=== PATIENT | female | born 1950 | race Caucasian/White ===

== ENCOUNTER 2022-03-24 09:45 | Outpatient (RCR) | payer MEDICARE, BC, SELFPAY | END 2022-11-11 23:59 | disposition home or self-care (01) | PROVIDERS: PCP Family Medicine; Visit Provider Physician Assistant Surgical | DX: Z98.890 Other specified postprocedural states (principal); Z51.89 Encounter for other specified aftercare | CPT/HCPCS: 97110; 97112; 97140; 97161 ==

== ENCOUNTER 2023-05-09 08:40 | Day surgery (SDC) | payer MEDICARE, BC, SELFPAY ==
[2023-05-09] VITALS (7 sets, daily range): BP systolic 105–149; BP diastolic 47–74; PULSE 73–97; RESP 16; TEMP 36.4–36.7; O2SAT 94–98; BMI 28.1
--- OUTSIDE RECORDS SUMMARY | 2023-05-09 08:44 | XMS_ITS | Encounter Summary ---
Author Name Unknown Organization [facility] Address [address] [place] [address] Care Team Providers Care Airplane Cabin Attendant Name Role Phone Votel, Ruben Hewitt MD Primary Care Provider + Reason for Visit * Procedure/Equipment (Routine) - Incomplete Specialty Diagnoses / Procedures Referred By Contac t Referred To Contact Diagnoses Pain in both hands Procedures XR Hand Lt 3+ Views Dameon Cardona MD [address] [place] [address] [place] [id number] Referral ID Status Reason Start Date Expiration Date V isits Requested Visits Authorized [id number] Incomplete 03/10/2023 06/08/2024 1 1 Encounter Details Date Type Department Care Team Description 03/10/2023 10:45 AM DUST BRUSH ASSEMBLER Ancillary Procedure [facility] [address] [place] [address] [place] [address] [place] [address] [place] [id number] Pain in both hands Social History Tobacco Use Types Packs/Day Years Used Date Smoking Tobacco: Never Smokeless Tobacco: Never Sex and Gender Information Value Date Recorded Sex Assigned at Not on file Gender Identity Not on file Sexual Orientation Not on file documented as of this encounter Plan of Treatment Not on file documented as of this encounter Procedures Procedure Name Priority Date/Time Associated Diagnosis Comments XR HAND LT 3+ VIEWS Routine 03/10/2023 1 0:47 AM DUST BRUSH ASSEMBLER Pain in both hands XR HAND RT 3+ VIEWS Routine 03/10/2023 1 0:47 AM DUST BRUSH ASSEMBLER Pain in both hands documented in this encounter Results * XR Hand Lt 3+ Views (03/10/2023 10:47 AM DUST BRUSH ASSEMBLER) Anatomical Region Laterality Modality Upper Extremity, Hand Digital Ra diography Narrative 03/22/2023 1:05 PM DUST BRUSH ASSEMBLER X-ray of the right hand, including AP, lateral, and oblique projections, shows advanced degenerative change in multiple joints, but particularly in those mentioned above, that is the right long and ring finger at PIP joints, and the right index MP joint. ??In addition, evidence of a previously performed CMC joint arthroplasty is noted. X-ray of the left hand, including AP, lateral, and oblique projections, shows advanced arthritic change in multiple joints, but most notably of the small finger PIP joint, the ring finger PIP joint, and the index MP joint. ??In addition, there is evidence of her previous thumb CMC joint arthroplasty. Dameon Cardona MD RAD GD * XR Hand Rt 3+ Views (03/10/2023 10:47 AM DUST BRUSH ASSEMBLER) Anatomical Region Laterality Modality Upper Extremity, Hand Digital Ra diography Narrative 03/22/2023 1:05 PM DUST BRUSH ASSEMBLER X-ray of the right hand, including AP, lateral, and oblique projections, shows advanced degenerative change in multiple joints, but particularly in those mentioned above, that is the right long and ring finger at PIP joints, and the right index MP joint. ??In addition, evidence of a previously performed CMC joint arthroplasty is noted. X-ray of the left hand, including AP, lateral, and oblique projections, shows advanced arthritic change in multiple joints, but most notably of the small finger PIP joint, the ring finger PIP joint, and the index MP joint. ??In addition, there is evidence of her previous thumb CMC joint arthroplasty. Dameon Cardona MD RAD GD documented in this encounter Visit Diagnoses Diagnosis Pain in both hands documented in this encounter Care Teams Airplane Cabin Attendant Relationship Specialty Start Date End Date Votel, Ruben Hewitt MD [address] [place] [address] PCP - General Family Practice 01/08/16 documented as of this encounter
--- OUTSIDE RECORDS SUMMARY | 2023-05-09 08:44 | XMS_ITS | Clinical Summary ---
Author Name Unknown Organization [facility] Address [address] [place] [address] Care Team Providers Care Posting Clerk Name Role Phone Votel, Ruben Hewitt MD Primary Care Provider + Source Comments You are receiving this document as you are listed as the primary care provider,follow-up provider, or the patient has been referred to you for consultation.This is in compliance with the Medicare and[facility] Clinic[facility] EHR Incentive Program,which states Providers who transition their patient to another setting of careor provider of care or refers their patient to another provider of care shouldprovide summary care record for each transition of care or referral. [employer] Allergies Active Allergy Reactions Criticality Noted Date Comments Epinephrine 01/13/2016 Latex Breathing Difficulty High 01/13/2016 Meperidine Other, see comments 01/13/2016 Mild agitated Morphine Nausea And Vomiting 01/13/2016 Medications Medication Sig Dispensed Refills Start Date End Date Status alendronate (FOSAMAX) 70 MG tablet Take 70 mg by mouth once every week. 0 Active Meloxicam (MOBIC) 15 MG tablet Take 15 mg by mouth daily. 0 Active Multiple Vitamin (MULTIVITAMINS OR) Take 1 Tab by mouth daily. 0 Active Ascorbic Acid (VITAMIN C) 100 MG tablet Take 100 mg by mouth daily. 0 Active cholecalciferol (VITAMIN D3) 1000 UNITS tablet Take 1,000 Units by mouth daily. 0 Active aspirin 81 MG tablet Take 81 mg by mouth daily. 0 Active Simethicone 125 MG Take by mouth daily. 0 Active omeprazole (PRILOSEC-OTC) 20 MG tablet Take 20 mg by mouth daily. 0 Active lisinopril (ZESTRIL) 40 MG tablet Take 40 mg by mouth daily. 0 Active hydrochlorothiazide (ORETIC) 25 MG tablet Take 25 mg by mouth daily. 0 Active fluticasone (FLONASE) 50 MCG/ACT nasal solution Place [address] [place] into both nostrils daily. 0 Active diphenoxylate-atropin e (LOMOTIL) 2.5-0.025 MG tablet Take 1 Tab by mouth 4 times daily as needed for Diarrhea. 0 Active amLODIPine (NORVASC) 10 MG tablet Take 10 mg by mouth daily. 0 Active cyclobenzaprine (FLEXERIL) 5 MG tablet Take 5 mg by mouth three times a day as needed for Muscle Spasms. 0 Active traZODone (DESYREL) 50 MG tablet Take 100 mg by mouth daily at bedtime. 0 Active amoxicillin (AMOXIL) 500 MG capsule Take 500 mg by mouth. 1 capsule 4 hours before dental work 0 Active atorvastatin (LIPITOR) 20 MG tablet Take 20 mg by mouth daily. 0 Active lidocaine-prilocaine (EMLA) 2.5-2.5 % cream Apply to affected areas up to 4 times daily as needed. Apply with a glove. 30 g 3 02/20/2016 Active diclofenac (VOLTAREN) 1 % gel Apply to affected areas up to 4 times daily as needed. 100 g 3 02/20/2016 Active Active Problems Problem Noted Date Diagnosed Date Primary osteoarthritis, right hand 03/10/2023 Osteoarthritis of proximal i nterphalangeal (PIP) joint of right middle finger 03/10/2023 Osteoarthritis of proximal i nterphalangeal (PIP) joint of right ring finger 03/10/2023 Osteoarthritis of metacarpop halangeal (MCP) joint of right index finger 03/10/2023 Osteoarthritis of proximal i nterphalangeal (PIP) joint of left ring finger 03/10/2023 Osteoarthritis of metacarpop halangeal (MCP) joint of left index finger 03/10/2023 Biceps tendinitis of left upper extremity 2015 Primary osteoarthritis involving multiple joints 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 current use of non -steroidal anti-inflammatories (NSAID) 02/20/2016 Essential hypertension 02/20/2016 Encounters Date Type Department Care Team Description 03/10/2023 11:15 AM COFFEE GROWER Office Visit [facility] [address] [place] [address] Dameon Cardona MD Pain in both hands (Primary Dx); Primary osteoarthritis, right hand; Osteoarthritis of proximal interphalangeal (PIP) joint of right middle finger; Osteoarthritis of proximal interphalangeal (PIP) joint of right ring finger; Osteoarthritis of metacarpophalangeal (MCP) joint of right index finger; Osteoarthritis of proximal interphalangeal (PIP) joint of left ring finger; Osteoarthritis of metacarpophalangeal (MCP) joint of left index finger 03/10/2023 10:45 AM COFFEE GROWER Ancillary Procedure [facility] [address] [place] [address] Dameon Cardona MD Pain in both hands from Last 3 Months Immunizations Name Administration Dates Next Due Influenza, Unspecified Formulation 01/21/2016 Social History Tobacco Use Types Packs/Day Years Used Date Smoking Tobacco: Never Smokeless Tobacco: Never Sex and Gender Information Value Date Recorded Sex Assigned at Not on file Gender Identity Not on file Sexual Orientation Not on file Last Filed Vital Signs Vital Sign Reading Time Taken Comments Blood Pressure 123/61 02/20/2016 9:41 AM CDT Pulse 70 02/20/2016 9:41 AM CDT Temperature - - Respiratory Rate - - Oxygen Saturation - - Inhaled Oxygen Concentration - - Weight 70.8 kg (156 lb) 02/20/2016 9:41 AM CDT Height - - Body Mass Index - - Plan of Treatment Health Maintenance Due Date Last Done Comments Colon Cancer Screening Plan Due 1950 Hep C Screening (Preventive Services) 1950 Medicare Annual Wellness Visit 1950 Mammogram 1950 COVID-19 Vaccine (#1) 1950 Cholesterol 1995 Dexa 2015 DTaP/Tdap/Td (2 - Tdap) 09/26/2022 09/26/2012, 03/31 Pneumococcal 65+ Yrs Completed 06/30/2017, 08/03/2016, 06/14/2015, Additional history exists Zoster/Shingles Completed 11/27/2022, 06/23, 12/13/2011 Influenza Completed 03/02/2023, 01/23, 02/17/2021, Additional history exists HepA Aged Out No longer eligi ble based on patient's age to complete this topic HepB Aged Out No longer eligi ble based on patient's age to complete this topic Hib Aged Out No longer eligi ble based on patient's age to complete this topic IPV (Polio) Aged Out No longer eligi ble based on patient's age to complete this topic MCV4 Aged Out No longer eligi ble based on patient's age to complete this topic Procedures Procedure Name Priority Date/Time Associated Diagnosis Comments XR HAND LT 3+ VIEWS Routine 03/10/2023 1 0:47 AM COFFEE GROWER Pain in both hands XR HAND RT 3+ VIEWS Routine 03/10/2023 1 0:47 AM COFFEE GROWER Pain in both hands from Last 3 Months Results * XR Hand Lt 3+ Views (03/10/2023 10:47 AM COFFEE GROWER) Anatomical Region Laterality Modality Upper Extremity, Hand Digital Ra diography Narrative 03/22/2023 1:05 PM COFFEE GROWER X-ray of the right hand, including AP, [...] Hand Rt 3+ Views (03/10/2023 10:47 AM COFFEE GROWER) Anatomical Region Laterality Modality Upper Extremity, Hand Digital Ra diography Narrative 03/22/2023 1:05 PM COFFEE GROWER X-ray of the right hand, including AP, [...] joint arthroplasty. Dameon Cardona MD RAD GD from Last 3 Months Care Teams Posting Clerk Relationship Specialty Start Date End Date Votel, Ruben Hewitt MD [address] [place] [address] PCP - General Family Practice 01/08/16
--- OUTSIDE RECORDS SUMMARY | 2023-05-09 08:44 | XMS_ITS | Encounter Summary ---
Author Name Unknown Organization [facility] Address [address] [place] [address] Care Team Providers Care Bag Bleacher Name Role Phone Votel, Ruben Hewitt MD Primary Care Provider + Reason for Referral * Procedure/Equipment (Routine) - Incomplete Specialty Diagnoses / Procedures Referred By Contac t Referred To Contact Diagnoses Pain in both hands Procedures XR Hand Lt 3+ Views Dameon Cardona MD [address] [place] [id number] Referral ID Status Reason Start Date Expiration Date V isits Requested Visits Authorized [id number] Incomplete 03/10/2023 06/08/2024 1 1 RER LIVESTOCK * Procedure/Equipment (Routine) - Incomplete Specialty Diagnoses / Procedures Referred By Contac t Referred To Contact Diagnoses Pain in both hands Procedures XR Hand Rt 3+ Views Dameon Cardona MD [address] [place] [id number] Referral ID Status Reason Start Date Expiration Date V isits Requested Visits Authorized [id number] Incomplete 03/10/2023 06/08/2024 1 1 RER LIVESTOCK Reason for Visit * Reason Comments HAND PAIN * Consult/Transfer Care (Routine) - New Request Specialty Diagnoses / Procedures Referred By Contac t Referred To Contact Orthopedics Diagnoses Zahira's nodes (with arthropathy) Primary osteoarthritis, left hand Primary osteoarthritis, right hand Timur Rodgers MD [address] [place] [address] [facility] [address] [place] [address] Referral ID Status Reason Start Date Expiration Date V isits Requested Visits Authorized [id number] New Request 02/23/2023 05/24/2024 1 1 Encounter Details Date Type Department Care Team Description 03/10/2023 11:15 AM LABORER LIVESTOCK Office Visit [facility] [address] [place] [address] Dameon Cardona MD [address] [place] [address] [place] [id number] Pain in both hands (Primary Dx); Primary osteoarthritis, right hand; Osteoarthritis of proximal interphalangeal (PIP) joint of right middle finger; Osteoarthritis of proximal interphalangeal (PIP) joint of right ring finger; Osteoarthritis of metacarpophalangeal (MCP) joint of right index finger; Osteoarthritis of proximal interphalangeal (PIP) joint of left ring finger; Osteoarthritis of metacarpophalangeal (MCP) joint of left index finger Social History Tobacco Use Types Packs/Day Years Used Date Smoking Tobacco: Never Smokeless Tobacco: Never Sex and Gender Information Value Date Recorded Sex Assigned at Not on file Gender Identity Not on file Sexual Orientation Not on file documented as of this encounter Patient Instructions * Patient Instructions* Mallory Arce, ATC - 03/10/2023 11:15 AM LABORER LIVESTOCK Thank you for Choosing [facility] for your health care visit today. Dr. Dameon Cardona MD Surgery of the Upper Extremity Medication Requests: Prescriptions are not filled on weekends or on weekdays after 3:00 PM. For all medication refills: Request a refill using [employer] or contact your pharmacy. What is Know Your Cost? Know Your Cost is a service for patients and patient/members to call and receive personalized cost information and estimates across our care group. The phone number is (COST) Tuesday - Tuesday 8 AM to 5 PM Advanced Imaging Scheduling: To schedule an MRI, Ultrasound, or Image guided injection at [facility] please call [phone]. To schedule an MRI or CT at a [facility] location please call [phone]. [facility] Workers' Compensation [address] [place] [address] (Phone) Email: [email or web address] Release of Information: Radiology/Imaging [address] [place] [address] (Phone) Health Information Management [address] [place] [address] (Phone) [employer] RER LIVESTOCK documented in this encounter Progress Notes * Dameon Cardona MD - 03/10/2023 11:15 AM CST 72 y/o F with severe end stage B/L hand DJD Wondering about continuing with steroid inj vs surgery Discussed This office note has been dictated. Dameon Cardona MD RER LIVESTOCK * Dameon Cardona MD - 03/10/2023 12:00 AM CST NAME: ANABELLA BRANDON [facility]: [id number] CLINIC NOTE DATE OF SERVICE: 03/10/2023 : 1950 The patient is a 72-year-old woman who presents for what is essentially a second opinion evaluationregarding her hands. She has been under the care of Dr. Rodgers in [place] for quite some time,receiving multiple repetitive steroid injections into various joints of her hands, including the PIP joints of the right long and ring fingers, the MP joint of the right index finger, the MP joint ofthe left index finger, and the PIP joint of the left ring finger. She states that she receives the injections about every 3 months, and finds them to be very helpful in relieving pain and stiffness. To date, she states that she has never had a situation where she derived no benefit from the injection. In addition, she is status post bilateral thumb CMC joint arthroplasties because of advanced degenerative change. She states that these are working satisfactorily. She presents today with multiple questions, most of which centered on appropriate treatment going forward. She indicates that Dr. Rodgers has encouraged her to consider surgical reconstruction of her fingers. She acknowledges that she is somewhat reluctant to do so as she enjoys knitting and crocheting, and is fearful that she would not be able to do these activities should she elect to proceed with surgery. In addition, she does complain of carpal tunnel like symptoms in both wrists and hands, worse on the left than the right. In addition to the injections, she states that she has been using meloxicam 15 mg per day for many years. Thus far, she has had no side effects from this. The patient's EMR has been reviewed, and the reader is referred to this document for further information. PHYSICAL EXAMINATION: Reveals a pleasant and well-appearing woman. She is comfortable and in no acute distress. She is oriented x3. She is comfortable with nonlabored breathing on room air. Inspection of her hands shows multiple various areas of severe and advanced degenerative joint disease, including the right long and ring PIPs, the right index MP, the left index MP, and the left ring PIP. She is tender to palpation without significant warmth or erythema. She does make reasonably good fist, bringing the tips of the fingers to the palmar surface, but is unable to fully double tuckthe digits. She is mildly tender over the various areas described with no significant pain upon deep palpation. All joints are stable to range of motion exam. Sensation and circulation are intact, exam is otherwise unremarkable. X-ray today, #[id number], x-ray of the right hand, including AP, lateral, and oblique projections, shows advanced degenerative change in multiple joints, but particularly in those mentioned above, thatis the right long and ring finger at PIP joints, and the right index MP joint. In addition, evidence of a previously performed CMC joint arthroplasty is noted. X-ray today, #[id number], x-ray of the left hand, including AP, lateral, and oblique projections, shows advanced arthritic change in multiple joints, but most notably of the small finger PIP joint, thering finger PIP joint, and the index MP joint. In addition, there is evidence of her previous thumbCMC joint arthroplasty. The patient presents with advanced end-stage degenerative joint disease involving multiple areas asnoted above in both hands. A lengthy discussion was held with the patient regarding the current status of her hands, her functional levels, treatment options, and recommendations. She has been advised that as long as she is deriving benefit from the steroid injections, and is comfortable with proceeding with them, there is no reason why she could not continue being treated in this fashion. Surgical options were discussed, though she was advised that these would involve principally silicone arthroplasties of the PIP joints, with a possible pyrocarbon replacement of the index MP joints. The limitations, advantages, disadvantages, and the recommendations regarding proceeding with these surgeries was held in a lengthy and zoila manner. She has been advised that all are good for relieving pain, though improvement in motion is unlikely to occur. Nothing would be recommended for the small finger DIP joint on the left side. In conclusion, the patient was advised that how to proceed is essentially up to her. She is a candidate for surgical arthroplasties, having met all of the criteria. However, if she wishes to continueto defer on these, she could not be found in error if she wished to continue with local injections. She was encouraged to consider these alternatives. She was asked to contact the clinic should she decide to proceed with surgery. Should she decide to proceed, priority would be given to the long finger and ring finger PIP jointsof the right hand, followed by right index MP joint arthroplasty, followed by left hand procedures. DAMEON CARDONA MD TFV/AQS /[id number] RER LIVESTOCK documented in this encounter Plan of Treatment Not on file documented as of this encounter Results * XR Hand Lt 3+ Views (03/10/2023 10:47 AM LABORER LIVESTOCK) Anatomical Region Laterality Modality Upper Extremity, Hand Digital Ra diography Narrative 03/22/2023 1:05 PM LABORER LIVESTOCK X-ray of the right hand, including AP, [...] her previous thumb CMC joint arthroplasty. Dameon BELTRAN GD * XR Hand Rt 3+ Views (03/10/2023 10:47 AM LABORER LIVESTOCK) Anatomical Region Laterality Modality Upper Extremity, Hand Digital Ra diography Narrative 03/22/2023 1:05 PM LABORER LIVESTOCK X-ray of the right hand, including AP, [...] encounter Visit Diagnoses Diagnosis Pain in both hands- Primary Primary osteoarthritis, right hand Osteoarthritis of proximal interphalangeal (PIP) joint of right middle finger Osteoarthritis of proximal interphalangeal (PIP) joint of right ring finger Osteoarthritis of metacarpophalangeal (MCP) joint of right index finger Osteoarthritis of proximal interphalangeal (PIP) joint of left ring finger Osteoarthritis of metacarpophalangeal (MCP) joint of left index finger Pain in both hands documented in this encounter Care Teams Bag Bleacher Relationship Specialty Start Date End Date Votel, Ruben Hewitt MD [address] [place] [address] PCP - General Family Practice 01/08/16 documented as of this encounter
--- OUTSIDE RECORDS SUMMARY | 2023-05-09 08:44 | XMS_ITS | Clinical Summary ---
Author Name Unknown Organization [email or web address] Address [place], [place] [address] Care Team Providers Care Cake Wringer Name Role Phone Votel, Ruben Hewitt MD Primary Care Provider + Allergies Active Allergy Reactions Criticality Noted Date Comments Chlorhexidine Towelette Itching 06/09/2021 Meperidine Mental Status Change 10/13/2006 Epinephrine Shortness Of Breath,Palpitations High 05/21/2010 Latex Hives,Shortness Of Breath,Itching High 10/31/2006 Morphine Nausea And Vomiting,Vomiting 013 Medications Medication Sig Dispensed Refills Start Date End Date Status GAS-X EXTRA STRENGTH 125 MG CAP take 1 capsule (125 mg) by oral route as needed after meals or at bedtime not to exceed 4 capsules in 24 hours 0 0 01/07/2009 Active ascorbic acid chewable (VITAMIN C) 500 mg tablet Chew 500 mg by mouth once daily. 0 Active amoxicillin (AMOXIL) 500 mg capsuleIndicatio ns:Status post revision of total knee replacement, right Take 4 Capsules (2,000 mg) by mouth one time if needed (dental prophylaxis). 4 tabs 1 hour before dental work 8 capsule. 2 06/11/2021 Active cholecalciferol (VITAMIN D3) 1,000 unit tablet Take 1,000 units by mouth once daily. 0 Active Light Mineral Oil-Mineral Oil (Soothe XP) 1-4.5 % drop eye drops Place 1-2 Drops into the eye(s) 2 times daily. And additional as needed 0 Active Microlet LancetIndication s:Controlled type 2 diabetes mellitus without complication, without long-term current use of insulin (HC) Dispense item covered by pt ins. E11.9 NIDDM type II - Test 1 time/day 200 Each 4 01/06/2022 Active CPAPIndications: GÓMEZ (obstructive sleep apnea) CPAP machine for home use at pressure 4-15 cmw, nasal mask x1/3month with nasal cushion x2/mo 1 Each 11 2022 Active acetaminophen (TYLENOL EXTRA STRGTH) 500 mg tablet Take 1 Tablet (500 mg) by mouth every 6 hours if needed (Take 2 tablets in the am, 2 tablets at noon and 2 tablets in the pm). Max acetaminophen dose: 4000mg in 24 hrs. 0 06/09/2022 Active cyclobenzaprine (FLEXERIL) 10 mg tabletIndication s:Muscle spasms of neck Take 1 Tablet (10 mg) by mouth three times daily. 90 Tablet 3 07/21/2022 Active atorvastatin (LIPITOR) 20 mg tabletIndication s:Hyperlipidemia LDL goal <100 TAKE 1 TABLET BY MOUTH AT BEDTIME 90 Tablet 2 10/22/2022 Active fluticasone (50 mcg per actuation) nasal solution (FLONASE)Indicat ions:Nasal congestion Use 2 spray(s) in each nostril once daily 48 g 1 01/18/2023 Active triamcinolone (ARISTOCORT) 0.1 % ointmentIndicati ons:Rash Apply topically to affected area(s) two times daily. 60 g 1 01/27/2023 Active omeprazole (PRILOSEC) 20 mg Delayed-Release capsuleIndicatio ns:Irritable bowel syndrome without diarrhea TAKE 1 CAPSULE BY MOUTH ONCE DAILY BEFORE A MEAL 90 Capsule 3 01/28/2023 Active amLODIPine (NORVASC) 10 mg tabletIndication s:Hypertension, unspecified type Take 1 Tablet (10 mg) by mouth once daily. 90 Tablet 3 01/27/2023 Active traZODone (DESYREL) 50 mg tabletIndication s:Insomnia, unspecified type TAKE 2 TABLETS BY MOUTH AT BEDTIME 180 Tablet 0 02/16/2023 Active hydroCHLOROthiaz rikki (HCTZ) 25 mg tabletIndication s:HTN (hypertension) Take 2 Tablets (50 mg) by mouth once daily. 180 Tablet 3 03/08/2023 Active meloxicam 15 mg tabletIndication s:Primary osteoarthritis, unspecified site Take 1 tablet by mouth once daily 90 Tablet 0 03/10/2023 Active blood sugar diagnostic (Contour Next Test Strips) stripIndications :Controlled type 2 diabetes mellitus without complication, without long-term current use of insulin (HC) USE 1 STRIP TO CHECK GLUCOSE ONCE DAILY 100 Each 3 03/10/2023 Active lisinopriL (PRINIVIL; ZESTRIL) 40 mg tabletIndication s:Hypertension, unspecified type Take 1 Tablet (40 mg) by mouth once daily. 60 Tablet 0 04/11/2023 Active oxyCODONE (ROXICODONE) 5 mg immediate release tabletIndication s:Hallux valgus with bunions, left,Hammertoe of left foot Take 1-2 Tablets (5-10 mg) by mouth every 4 hours if needed for Pain. 20 Tablet 0 05/04/2023 Active durable medical equipment (DME)Indications :Hallux valgus with bunions, left,Hammertoe of left foot AIR SELECT, SHORT, MEDIUM, REF: 01ES-M 0 05/04/2023 Active metoprolol succinate (TOPROL XL) 50 mg sustained-releas e tabletIndication s:Hypertension, unspecified type Take 2 Tablets (100 mg) by mouth once daily. 60 Tablet 2 05/04/2023 Active traMADoL (ULTRAM) 50 mg tabletIndication s:Primary osteoarthritis, unspecified site TAKE 1 TO 2 TABLETS BY MOUTH EVERY 6 HOURS NEEDED FOR PAIN 50 Tablet 0 05/04/2023 Active traMADoL (ULTRAM) 50 mg tabletIndication s:Primary osteoarthritis, unspecified site TAKE 1 TO 2 TABLETS BY MOUTH EVERY 6 HOURS NEEDED FOR PAIN 50 Tablet 0 12/29/2022 4 Discontinue d(Reorder (E-cancel not sent)) metoprolol succinate (TOPROL XL) 50 mg sustained-releas e tabletIndication s:Hypertension, unspecified type Take 2 Tablets (100 mg) by mouth once daily. 60 Tablet 2 01/27/2023 4 Discontinue d(Reorder (E-cancel not sent)) lisinopriL (PRINIVIL; ZESTRIL) 40 mg tabletIndication s:Hypertension, unspecified type Take 1 tablet by mouth once daily 60 Tablet 0 03/10/2023 3 Discontinue d(Reorder (E-cancel not sent)) Active Problems Problem Noted Date Diagnosed Date Colon polyp 06/11/2022 Overview: Colonoscopy 05/2022 SSA, repeat in 5 years Pseudoarthrosis of cervical spine 09/09/2021 Recurrent knee instability, right 03/07/2020 Unspecified inflammatory spondylopathy, thoracic region 10/26/2019 History of knee replacement, total, right with Dr. Gomez on 03/27/2003 06/08/2019 History of knee replacement, total, left with Dr. Gomez on 03/27/2003, with a plastic liner swap in 200906/08/2019 Chronic pain of right knee 06/08/2019 Possible aseptic loosening o f prosthetic knee and loosening of the plastic liner, right 06/08/2019 Controlled type 2 diabetes m ellitus without complication, without long-term current use of insulin 07/03/2017 Primary osteoarthritis of knee 01/13/2017 Hyperlipidemia 05/19/2016 ACP (advance care planning) 11/27/2015 Overview: Patient updated her HCD, see HCD 11/26/15. Jaida Easley [employer] Advance Care Planning Educator [phone] GÓMEZ 07/02/2015 AHI-6, worse on back, higher RDI Screen for colon cancer 05/18/2012 Overview: Colonoscopy 04/2012 normal repeat in 10 years Osteopenia 05/26/2011 Allergic rhinitis 05/21/2010 Sensorineural hearing loss, bilateral 09/26/2009 HTN (hypertension) 04/13/2007 Irritable bowel syndrome 04/13/2007 Status post revision of total knee replacement, right Resolved Problems Problem Noted Date Diagnosed Date Resolved Date Osteoarthrosis, unspecified whether generalized or localized, unspecified site 04/13/2007 01/13/2017 Overview: Knees and left thumb Encounters Date Type Department Care Team Description 05/07/2023 Travel 05/04/2023 2:30 PM FACILITY EXAMINER Preop Visit [facility] [address] [place] [address] Votel, Ruben Hewitt MD Preoperative Exam (05/09/23, [place], MPJ fusion, hammertoe) 05/04/2023 2:00 PM FACILITY EXAMINER Ancillary Procedure [facility] [address] [facility] [place] [address] Arrived 05/04/2023 1:30 PM FACILITY EXAMINER Office Visit [facility] [address] [facility] [place] [address] Kodak Manjarrez DPM Follow Up (Left foot, final surgical discussion, DOS 05/09/23) 05/04/2023 Telephone [facility] [address] [place] [address] Kodak Manjarrez DPM Medication Management (oxyCODONE (ROXICODONE) 5 mg immediate release tablet) 05/04/2023 Travel 05/03/[address] [address] Ruben Cason MD Refill Request (Metoprolol Succinate) 04/30/2023 Travel 04/13/[address] [phone] [facility] (Ready for molded goods spot picker) 04/12/2023 Telephone [facility] [address] [address] Silvestre Patton MD Appointment (ANY CARD/) 04/11/2023 10:50 AM FACILITY EXAMINER Orders Only [address] [address] Lab, [place] [facility] 04/11/2023 10:30 AM FACILITY EXAMINER Nurse/Clinic Staff Only [address] [address] Blood Pressure (BLOOD PRESSURE CHECK ) 04/11/[address] [address] Ruben Cason MD Blood Pressure 04/11/2023 Travel 04/07/2023 Travel 03/31/[address] [address] [facility] hearing aides 03/09/2023 Refill [facility] [address] [place] [address] Ruben Cason MD Refill Request (Meloxicam, Lisinopril, Contour Next Test Strips) 03/08/2023 10:00 AM FACILITY EXAMINER Office Visit [facility] [address] [place] [address] Ruben Cason MD Diabetes; Blood Pressure (Follow up) 03/08/2023 Travel 03/05/2023 Travel 02/25/2023 12:10 PM CDT Orders [place] [address] [place] [address] Lab, [facility] 02/25/2023 Travel 02/15/2023 Refill [facility] [address] [place] [address] Ruben Csaon MD Refill Request (Trazodone) 02/08/2023 10:30 AM CDT Office Visit [address] [address] Arelis Coronado [facility] Hearing Aid (SAUCEDO check) 02/08/2023 Travel from Last 3 Months Immunizations Name Administration Dates Next Due COVID-19 vaccine (Moderna 100mcg/0.5mL) PF, MDV 02/26/2021,05/19/2020,04/21/2020 COVID-19 vaccine (Pfizer-Bio NTech 30mcg/0.3mL) PF, MDV 08/27/2021 Hepatitis B, Unspecified 05/21/1997,12/07/1996,0 11/12/1996 Influenza A (H1N1), Inactivwil herring (Age >=3 Years) 02/23/2011,03/06/2009,02/05/2009 Influenza Virus, Unspecified 01/31/2018,01/21/20 16 Influenza, High-dose Inactivated 01/31/2018,12/25 Influenza, High-dose Quadriv alent Inactivated 03/02/2023,02/05/2022 Influenza, IIV3 (Age 6-35 mos) 01/18/2013,2008 Influenza, IIV3 (Age >=3 years) 01/18/20 15,02/16/2014,06/05/2012,12/20,01/08/2011,01/19/2010,02/05/2009 ,02/19/2008,02/09/2007 Influenza, IIV4 02/17/2021, 9,01/21/2017,01/06,02/14/2016,01/17/2015,02/23/2011 ,03/06/2009 Influenza, Inactivated AIIV4 (Age 65+ Years) Preserv Free 02/05/2020 Pneumococcal Conj 20-valent (Prevnar 20) 04/08/2023 Pneumococcal Poly,23-Valent (Pneumovax) 06/30/2017,08/03/2016,07/02/2009 Pneumococcal conj 13-Valent (Prevnar 13) 06/14/2015 RSV, Recombinant ADJ Reconst ituted (Arexvy 120MCG/0.5mL) 03/02/2023 Td (Age >=7 Years) 03/31/2004 Tdap 04/08/2023,09/26/2012 Zoster (Shingrix-RZV, recombinant) 11/27/2022, Zoster (Zostavax-ZVL, live) 12/13/2011 Family History Medical History Relation Name Comments Cancer Brother cancer of prost ate as a child, age11 Other Father atherosclerosis , chf, renal failure Other Mother brain aneurysm, age 42 Anesthesia Problem No Family History Blood Disease No Family History Cancer-breast No Family History Relation Name Status Comments Brother Father Mother Social History Tobacco Use Types Packs/Day Years Used Date Smoking Tobacco: Never Smokeless Tobacco: Never Tobacco Cessation:Counseling Given: Yes Alcohol Use Standard Drinks/Week Comments Not Currently 0 (1 standard drink = 0.6 oz pur e alcohol) PHQ-2 Answer Date Recorded PHQ-2 TOTAL SCORE 0 07/21/2022 Social Connections Answer Date Recorded Frequency of Communication with Friends and Fami ly 0 01/24/2023 Financial Resource Strain Answer Date R ecorded Difficulty of Paying Living Expenses 3 01/24/2023 Difficulty of Paying Living Expenses Not on file 01/24/2023 Food Insecurity Answer Date Recorded Worried About Running Out of Food in the Last Ye ar 1 01/24/2023 Transportation Needs Answer Date Record ed Lack of Transportation (Medical) 1 01/24/2023 Housing Stability Answer Date Recorded Unable to Pay for Housing in the Last Year 1 01/24/2023 Sex and Gender Information Value Date Recorded Sex Assigned at Not on file Gender Identity Not on file Sexual Orientation Not on file Obstetrics History Last Filed Vital Signs Vital Sign Reading Time Taken Comments Blood Pressure 146/78 05/04/2023 2:34 PM FACILITY EXAMINER Pulse 71 05/04/2023 2:34 PM FACILITY EXAMINER Temperature 36.7 ??C (98.1 ??F) 05/04/2023 2:34 PM CS T Respiratory Rate 16 06/10/2022 10:53 AM FACILITY EXAMINER Oxygen Saturation 98% 05/04/2023 2:34 PM FACILITY EXAMINER Inhaled Oxygen Concentration - - Weight 72.1 kg (159 lb) 05/04/2023 2:34 PM FACILITY EXAMINER Height 162.3 cm (5' 3.9) 05/04/2023 2:34 PM FACILITY EXAMINER Body Mass Index 27.38 05/04/2023 2:34 PM FACILITY EXAMINER Plan of Treatment Upcoming Encounters Date Type Department Care Team (Late st Contact Info) Description 05/11/2023 10:30 AM FACILITY EXAMINER Office Visit [facility] [address] [place] [address] Kodak Manjarrez DPM [address] [place] [address] 05/18/2023 12:30 PM FACILITY EXAMINER Office Visit [address] [phone] Reside, Aminata Bingham [address] [place] [address] 05/25/2023 10:30 AM FACILITY EXAMINER Office Visit [facility] [address] [place] [address] Kodak Manjarrez DPM [address] [place] [address] 06/16/2023 1:40 PM FACILITY EXAMINER Office Visit [facility] [address] [facility] [address] [place] [phone] Sánchez Tobar MD [address] [place] [address] 06/22/2023 10:30 AM FACILITY EXAMINER Office Visit [facility] [address] [place] [address] Kodak Manjarrez, DPM [address] [place] [address] 07/06/2023 10:30 AM CDT Office Visit [facility] [place] [facility] [address] [place] [address] Daniel Arredondo MD [address] [place] [address] [place] [address] Health Maintenance Due Date Last Done Comments Mammogram for age 45-75 06/09/2023 06/09/19 23, 05/19/2021, 02/05/2020, Additional history exists Medicare Wellness for age 65+ 06/09/2023, 05/19/2021, 02/05/2020, Additional history exists Depression screening for age 12+ 07/22/2023 07/21/2022, 05/20/2021, 05/20/2021, Additional history exists BMI (ht and wt on same day) for age 18+ 05/04/2024 05/04/2023, 03/08/2023, 01/27/2023, Additional history exists Colonoscopy through age 75 06/10/202706/10, 06/10/2022, 06/10/2022, Additional history exists Lipids for age 45-75 06/10/2027 06/10/2022, 10/21/2020, 09/18/2019, Additional history exists Tetanus booster 04/08/2033 04/08/2023, 06/0 07/2012, 03/31/2004 Hepatitis C screening for ag e 18-79 Completed 05/19/2016 DEXA/DXA scan for age 65+ Completed 2019, 06/30/2017, 07/01/2015, Additional history exists Fecal testing non-DNA (FIT,FOBT,iFOBT) for age 45-75 Discontinued 05/26/2021 Zoster (shingles) series for age 50+ Completed 11/27/2022, 07/09/2022, 12/13/2011 COVID-19 vaccine series Completed 03/02/20, 01/04/2022, 08/27/2021, Additional history exists Influenza for age 65+ Completed 03/02/2023 , 02/05/2022, 02/17/2021, Additional history exists Pneumococcal series for age 65+ Completed 04/08/2023, 06/30/2017, 08/03/2016, Additional history exists Tdap Completed 04/08/2023, 09/26/2012 Medical Devices Implanted Type Area Thermometer Tester Device Identifier Shelf Expiration Date Model / Serial / Lot [id number] one Álvaro Canclls Chips 30cc Gamma Frz Dried [[id number]] Implanted:Qty: 1 on 10/16/2012 at [facility] Explanted:at [facility] (Quantity not on file) Spine Allosource 02/10/2017 [id number]# / [id number] / Set Screw G5 4.75x30 Ti Ns Brk Off - [id number] Implanted:Qty: 6 on 10/16/2012 by Tomas Juarez MD at [facility] Left: Lumbar Vertebrae [id number]# / / Screw Mas 6.5x40cc - [id number] Implanted:Qty: 6 on 10/16/2012 by Tomas Juarez MD at [facility] Left: Lumbar Vertebrae [id number]# / / Allen 4.75ccm Ns Crv 55mm - [id number] Implanted:Qty: 1 on 10/16/2012 by Tomas Juarez MD at [facility] Left: Lumbar Vertebrae [id number] # / / Allen 4.75ccm Ns Crv 50mm - [id number] Implanted:Qty: 1 on 10/16/2012 by Tomas Juarez MD at [facility] Left: Lumbar Vertebrae [id number] # / / Dmaien Godoy Md - [id number] Implanted:Qty: 1 on 10/16/2012 at [facility] Left: Spine Medtronic Spine/Ortho [id number]# / / [id number] Ti Tlif Implant Implanted:Qty: 1 on 10/16/2012 at [facility] Left: Spine TLIF-24-10 / / Description:[id number] TI TLI F IMPLANT [id number] Ti Tlif Implant Implanted:Qty: 1 on 10/16/2012 at [facility] TLIF-30-08 / / Description:[id number] TI TLIF IMPLANT Spacer Cerv [id number] Ascend Titnm - [id number] Implanted:Qty: 1 on 01/26/2017 by Tomas Juarez MD at [facility] N/A: Spine Nvidia [id number]# / / [id number] Spacer Cerv [id number] Ascend Titnm - [id number] Implanted:Qty: 1 on 01/26/2017 by Tomas Juarez MD at [facility] N/A: Spine Nvidia OXF139# / / [id number] Spacer Cerv [id number] Ascend Titnm - [id number] Implanted:Qty: 1 on 01/26/2017 by Tomas Juarez MD at [facility] N/A: Spine Nvidia [id number]# / / [id number] Screw Cerv 4.5x12 Slf Drillingvari - [id number] Implanted:Qty: 2 on 01/26/2017 by Tomas Juarez MD at [facility] N/A: Spine Nvidia [id number]# / / [id number] Screw Cerv 4.0x12 Slf Drillingvari - [id number] Implanted:Qty: 1 on 01/26/2017 by Tomas Juarez MD at [facility] N/A: Spine Nvidia [id number]# / / [id number] Screw Cerv 4.0x12 Slf Drillingvari - [id number] Implanted:Qty: 5 on 01/26/2017 by Tomas Juarez MD at [facility] N/A: Spine Nvidia [id number]# / / [id number] Plate Cerv 3lvl 60mm Ascend Implanted:Qty: 1 on 01/26/2017 by Tomas Juarez MD at [facility] N/A: Spine [id number] / / [id number] Description:PLATE CERV 3LVL 60MM ASCEND [id number] one Matrix 1cc [place] Putty Dbm Implanted:Qty: 1 on 01/26/2017 by Tomas Juarez MD at [facility] Explanted:at [facility] (Quantity not on file) N/A: Spine Medtronic Spine/Ortho 01/13/2019 [id number]# / [id number] / Cmnt Bone 40g Simplex P Atb Mv Tobramycin - [id number] Implanted:Qty: 3 on 06/09/2021 by Sánchez Tobar MD at [facility] Right: Knee [employer] [facility] 08/22/2021 6197-9-010 / / [id number] Cmnt Bone 40g Simplex P Atb Mv Tobramycin - [id number] Implanted:Qty: 1 on 06/09/2021 by Sánchez Tobar MD at [facility] Right: Knee [facility] 07/23/2022 6197-9-010 / / [id number] Stem Knee 99g837ht Triathlon - [id number] Implanted:Qty: 1 on 06/09/2021 by Sánchez Tobar MD at [facility] Right: Knee [employer] [facility] 04/05/2022 5560-S-215 / / [id number] Augment Knee Rt Sz 4 5mm Triathlon Fem - [id number] Implanted:Qty: 1 on 06/09/2021 by Sánchez Tobar MD at [facility] Right: Knee [facility] 04/03/2024 5540-A-402 / / [id number] Insert Tib Sz 4 13mm Knee X3 Total Stablizer Plus Triathlon - [id number] Implanted:Qty: 1 on 06/09/2021 by Sánchez Tobar MD at [facility] Right: Knee [facility] 03/27/2025 5537-G-413 -E / / [id number] Cmnt Restrictor W/Geospatial Information Scientist [id number] - [id number] Implanted:Qty: 2 on 06/09/2021 by Sánchez Tobar MD at [facility] Right: Knee [facility] 05/21/2025 [id number] / / [id number] Stem Knee 89m83aq Triathlon - [id number] Implanted:Qty: 1 on 06/09/2021 by Sánchez Tobar MD at [facility] Right: Knee [facility] 03/11/2025 5560-S-112 / / [id number] Baseplate Tib Sz 4 Triathlon Pe - [id number] Implanted:Qty: 1 on 06/09/2021 by Sánchez Tobar MD at [facility] Right: Knee [facility] 04/01/2025 5521-B-400 / / [id number] Fem Rt Sz 4 Triathlon - [id number] Implanted:Qty: 1 on 06/09/2021 by Sánchez Tobar MD at [facility] Right: Knee [facility] 05/27/2025 [id number] / / [id number] Triathlon Tritanium Tibial Asymmetric Cone Augment Szeb Rm/Ll Implanted:Qty: 1 on 06/09/2021 by Sánchez Tobar MD at [facility] Right: Knee 01/17/2023 5549-A-222 / / HAED Description:TRIATHLON TRITAN IUM TIBIAL ASYMMETRIC CONE AUGMENT SZEB RM/LL [id number] one Matrix 1cc [place] Dbf Putty Dbm Implanted:Qty: 1 on 09/09/2021 by Tomas Juarez MD at [facility] Explanted:at [facility] (Quantity not on file) Spine Medtronic Spine/Ortho 06/28/2023 [id number] / [id number] / Screw Cerv 3.5x8mm Infinity Non-Std Multi Axial - [id number] Implanted:Qty: 1 on 09/09/2021 by Tomas Juarez MD at [facility] Spine Medtronic Spine/Ortho 01/24/2026 [id number] / / [id number] Screw Cerv 3.5x10mm Infinity Non-Std Multi Axial - [id number] Implanted:Qty: 3 on 09/09/2021 by Tomas Juarez MD at [facility] Spine Medtronic Spine/Ortho 05/06/2029 [id number] / / [id number] Allen Cerv 3.5x50mm Infinity Pre-Cut - [id number] Implanted:Qty: 2 on 09/09/2021 by Tomas Juarez MD at [facility] Spine Medtronic Spine/Ortho [id number] / / Screw Cerv 3.5x12mm Infinity Multi Axial - [id number] Implanted:Qty: 4 on 09/09/2021 by Tomas Juarez MD at [facility] Spine Medtronic Spine/Ortho [id number] / / Set Screw Implanted:Qty: 8 on 09/09/2021 by Tomas Juarez MD at [facility] Spine [id number] / / Description:SET SCREW Plate Cerv 2lvl 43mm Ascend Ant - [id number] Implanted:Qty: 1 on 09/09/2021 by Tomas Juarez MD at [facility] Spine CleanSlate [employer] Corrupt Lace [id number] / / [id number] Screw Cerv Ant 4.5x16mm Ascend Slf Drill Va - [id number] Implanted:Qty: 1 on 09/09/2021 by Tomas Juarez MD at [facility] Spine Nvidia [id number] / / [id number] Screw Cerv 4.5x14 Slf Drilling Vari - [id number] Implanted:Qty: 5 on 09/09/2021 by Tomas Juarez MD at [facility] Spine Nvidia [id number] / / [id number] Explanted Type Area Thermometer Tester Device Identifier Shelf Expiration Date Model / Serial / Lot Explant Explanted:Qty: 1 on 06/09/2021 by Sánchez Tobar MD at [facility] Right: Knee Description:FEMUR, POLY INSE RT, TIBIA Procedures Procedure Name Priority Date/Time Associated Diagnosis Comments CBC WITH AUTO DIFFERENTIAL Routine 05/04/2023 2:27 PM FACILITY EXAMINER HTN (hypertension) BASIC METABOLIC PANEL Routine 05/04/2023 2:27 PM FACILITY EXAMINER HTN (hypertension) CBC WITH AUTO DIFFERENTIAL Routine 05/04/2023 2:27 PM FACILITY EXAMINER HTN (hypertension) XR FOOT 3 VIEWS LEFT Routine 05/04/2023 1:48 PM FACILITY EXAMINER Hallux valgus with bunions, left Hammertoe of left foot BASIC METABOLIC PANEL Routine 04/11/2023 10:53 AM FACILITY EXAMINER HTN (hypertension) URINE ALBUMIN TO CREATININE RATIO, RANDOM Routine 03/08/2023 10:41 AM FACILITY EXAMINER Controlled type 2 diabetes mellitus without complication, without long-term current use of insulin (HC) HEMOGLOBIN A1C Routine 03/08/2023 10:37 AM FACILITY EXAMINER Controlled type 2 diabetes mellitus without complication, without long-term current use of insulin (HC) QFT MITOGEN PERFORMABLE Routine 02/25/2023 12:20 PM CDT Screening-pulmonary TB QFT TB2 PERFORMABLE Routine 02/25/2023 1 2:20 PM CDT Screening-pulmonary TB QFT TB1 PERFORMABLE Routine 02/25/2023 1 2:20 PM CDT Screening-pulmonary TB QUANTIFERON TB GOLD PLUS Routine 02/25/2023 12:20 PM CDT Screening-pulmonary TB QUANTIFERON TB GOLD PLUS Routine 02/25/2023 12:20 PM CDT Screening-pulmonary TB from Last 3 Months Results * CBC WITH AUTO DIFFERENTIAL (05/04/2023 2:27 PM FACILITY EXAMINER) WHITE BLOOD COUNT 5.6 4.5 - 11.0 thou/cu mm 05/04/2023 2:35 PM [facility] RED BLOOD COUNT 4.36 4.00 - 5.20 mil/cu mm 05/04/2023 2:35 PM [facility] HEMOGLOBIN 13.2 12.0 - 16.0 g/dL 05/04/2023 2:35 PM [facility] HEMATOCRIT 39.2 33.0 - 51.0 % 05/04/2023 2:35 PM [facility] MCV 90 80 - 100 fL 05/04/2023 2:35 PM [facility] MCH 30.3 26.0 - 34.0 pg 05/04/2023 2:35 PM [facility] MCHC 33.7 32.0 - 36.0 g/dL 05/04/2023 2:35 PM [facility] RDW 12.8 11.5 - 15.5 % 05/04/2023 2:35 PM [facility] [facility] PLATE[facility] COUNT 180 140 - 440 thou/cu mm 05/04/2023 2:35 PM [facility] MPV 9.9 6.5 - 11.0 fL 05/04/2023 2:35 PM [facility] % NEUT 57.4 % 05/04/2023 2:35 PM [facility] % LYMPH 31.5 % 05/04/2023 2:35 PM [facility] % MONO 9.8 % 05/04/2023 2:35 PM [facility] % EOS 0.9 % 05/04/2023 2:35 PM [facility] % BASO 0.4 % 05/04/2023 2:35 PM [facility] ABSOLUTE NEUTROPHILS 3.2 1.7 - 7.0 thou/cu mm 05/04/2023 2:35 PM [facility] ABSOLUTE LYMPHOCYTES 1.8 0.9 - 2.9 thou/cu mm 05/04/2023 2:35 PM [facility] ABSOLUTE MONOCYTES 0.6 <0.9 thou/cu mm 05/04/2023 2:35 PM [facility] ABSOLUTE EOSINOPHILS 0.1 <0.5 thou/cu mm 05/04/2023 2:35 PM [facility] ABSOLUTE BASOPHILS 0.0 <0.3 thou/cu mm 05/04/2023 2:35 PM [facility] Blood BLOOD SPECIMEN / Unknown Venipuncture / Unknown 05/04/2023 2:27 PM FACILITY EXAMINER 05/04/2023 2:28 PM [facility] Ruben Cason MD HEMATOLOGY [facility] [address] [place] [address], * (ABNORMAL) BASIC METABOLIC PANEL (05/04/2023 2:27 PM FACILITY EXAMINER) Only the most recent of2 resultswithin the time period is included. SODIUM 139 136 - 145 mmol/L 05/04/2023 10:08 PM [facility] POTASSIUM 3.9 3.5 - 5.1 mmol/L 05/04/2023 10:08 PM [facility] CHLORIDE 96(L) 98 - 107 mmol/L 05/04/2023 10:08 PM [facility] CO2,TOTAL 29 22 - 29 mmol/L 05/04/2023 10:08 PM [facility] ANION GAP 14 5 - 18 05/04/2023 10:08 PM [facility] GLUCOSE 102(H) 70 - 99 mg/dL 05/04/2023 10:08 PM [facility] CALCIUM 10.3(H) 8.8 - 10.2 mg/dL 05/04/2023 10:08 PM [facility] BUN 13 8 - 23 mg/dL 05/04/2023 10:08 PM [facility] CREATININE 0.70 0.50 - 0.90 mg/dL 05/04/2023 10:08 PM [facility] BUN/CREAT RATIO 19 10 - 20 10:08 PM FACILITY EXAMINER [facility] eGFR >90 >90 mL/min/1.7 3m2 05/04/2023 10:08 PM FACILITY EXAMINER [facility] Comment:As of 2021, eG FR is calculated by the CKD-EPI creatinine equation without race adjustment. ??eGFR can be influenced by muscle mass, exercise, and diet. ??The reported eGFR is an estimation only and is only applicable if the renal function is stable. Blood BLOOD SPECIMEN / Unknown Venipuncture / Unknown 05/04/2023 2:27 PM FACILITY EXAMINER 05/04/2023 2:28 PM FACILITY EXAMINER Ruben Cason MD [facility] [address] [place] [address], [place] * XR FOOT 3 VIEWS LEFT (05/04/2023 1:48 PM FACILITY EXAMINER) Anatomical Region Laterality Modality FEET, FOOT L Computed Radiogr aphy 05/07/2023 5:31 AM FACILITY EXAMINER Narrative 05/07/2023 5:31 AM FACILITY EXAMINER For Patients: ??As a result of the 21st Century Cures Act, medical imaging exams and procedure reports are released immediately into your electronic medical record. ??You may view this report before your referring provider. ??If you have questions, please contact your health care provider. INDICATION: Hallux valgus with bunion TECHNIQUE: Foot radiograph 3 views left COMPARISON: 02/20/2019 FINDINGS: Bone: No acute fractures or aggressive bone lesions are identified. Moderate metatarsus primus varus hallux valgus is noted with Hallux angle measuring 33 degrees. Mild stable bone proliferation seen over the medial eminence of 1st metatarsal head. Moderate diffuse osteopenia is present. 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 No significant ankle effusion is seen. Soft tissue: Unremarkable. No radiopaque foreign bodies are seen. IMPRESSIONS: 1. Moderate metatarsus primus varus hallux valgus is noted with Hallux angle measuring 33 degrees. 2. 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 Dictated by Paramjit Bowers MD @ 05/07/2023 5:31:23 AM Dictated by: Paramjit Bowers MD @ 05/07/2023 05:31:32 (Electronically Signed) Procedure Note Paramjit Bowers MD - 05/07/2023 For Patients: As a result of the Cures Act, medical imagingexams and procedure reports are released immediately into your electronicmedical record. You may view this report before your referring provider.If you have questions, please contact your health care provider. INDICATION: Hallux valgus with bunion TECHNIQUE: Foot radiograph 3 views left COMPARISON: 02/20/2019 FINDINGS: Bone: No acute fractures or aggressive bone lesions are identified.Moderate metatarsus primus varus hallux valgus is noted with Hallux anglemeasuring 33 degrees. Mild stable bone proliferation seen over the medialeminence of 1st metatarsal head. Moderate diffuse osteopenia is present. Joint: Mild osteoarthritis of the 1st metatarsal-phalangeal joint isnoted. Chronic dislocation of the 3rd metatarsophalangeal joint is notedwithout interval change. No significant ankle effusion is seen. Soft tissue: Unremarkable. No radiopaque foreign bodies are seen. IMPRESSIONS: 1. Moderate metatarsus primus varus hallux valgus is noted with Halluxangle measuring 33 degrees. 2. Chronic dorsal dislocation of the 3rd metatarsophalangeal joint isnoted without interval change. Dictated by Paramjit Bowers MD @ 05/07/2023 5:31:23 AM Dictated by: Paramjit Bowers MD @ 05/07/2023 05:31:32 (Electronically Signed) [employer] Manjarrez DPM GENERAL IMAGING * URINE ALBUMIN TO CREATININE RATIO, RANDOM (03/08/2023 10:41 AM FACILITY EXAMINER) ALB RAND URINE <12.0 mg/L 03/09/2023 1:52 AM FACILITY EXAMINER [facility] CREATININE,URINE 0.63 g/L 03/09/20 1:52 AM FACILITY EXAMINER [facility] ALBUMIN TO CREATININE RATIO,RAND UR 03/09/2023 1:52 AM FACILITY EXAMINER [facility] Comment:Urine Albumin below measurement range, unable to calculate. Urine URINE SPECIMEN / Unknown Non-Blood / Unknown 03/08/2023 10:41 AM FACILITY EXAMINER 03/08/2023 10:41 AM FACILITY EXAMINER Narrative [facility] - 03/09/2023 1:52 AM FACILITY EXAMINER If Albumin to Creatinine Ratio is elevated, consider the following: ? Elevations seen with incipient nephropathy associated ?? with diabetes mellitus or hypertension. Stress, exercise,hematuria, ?? and urinary tract infection may also produce elevated results. If clinically indicated, confirm with ?24 Hour Albumin to Creatinine Ratio. ?? Ruben Cason MD URINE Performing Organization Address City/[facility] Co de Phone Number [facility] [address] [place] [address], * HEMOGLOBIN A1C MONITORING (POCT) (03/08/2023 10:37 AM FACILITY EXAMINER) Pathologist [facility] HEMOGLOBIN A1C MONITORING (POCT) 6.0 <=6.4 % 03/08/2023 10:48 AM FACILITY EXAMINER [facility] Blood BLOOD SPECIMEN / Unknown Venipuncture / Unknown 03/08/2023 10:37 AM FACILITY EXAMINER 03/08/2023 10:38 AM FACILITY EXAMINER Narrative [facility] - 03/08/2023 10:48 AM FACILITY EXAMINER ? (<=6.9%) ? Indicates good control ? (7.0% to 7.9%) ? Indicates fair control ? (>=8.0%) ? Indicates poor control ?? NOTE: ??These thresholds are guidelines and ?individual targets may vary. Falsely low levels may be seen with: Recent Transfusion, Recent Significant Blood Loss, Hemolytic Diseases, or Falsely elevated levels may be seen with: Untreated Anemias, Splenectomy ? Ruben Cason MD CHEMISTRY [facility] [address] [place] [address], * QFT MITOGEN PERFORMABLE (02/25/2023 12:20 PM CDT) MITOGEN 9.60 IU/mL 02/27/2023 8:50 AM FACILITY EXAMINER [facility] Blood BLOOD SPECIMEN / Unknown Butterfly / Unknown 02/25/2023 12:20 PM CDT 02/25/2023 12:21 PM CDT Ruben Cason MD CHEMISTRY Performing Organization Address City/[facility] Co de Phone Number [facility] [address] [place] [id number], [place] * QFT TB2 PERFORMABLE (02/25/2023 12:20 PM CDT) TB2 0.07 IU/mL 02/27/2023 8:50 AM FACILITY EXAMINER [facility] Blood BLOOD SPECIMEN / Unknown Butterfly / Unknown 02/25/2023 12:20 PM CDT 02/25/2023 12:21 PM CDT Ruben Cason MD CHEMISTRY Performing Organization Address [facility] Co de Phone Number [facility] [address] [address], [place] * QFT TB1 PERFORMABLE (02/25/2023 12:20 PM CDT) TB1 0.00 IU/mL 02/27/2023 8:50 AM FACILITY EXAMINER [facility] Blood BLOOD SPECIMEN / Unknown Butterfly / Unknown 02/25/2023 12:20 PM CDT 02/25/2023 12:21 PM CDT Ruben Cason MD CHEMISTRY [facility] [address] [place] [address], * QUANTIFERON TB GOLD PLUS (02/25/2023 12:20 PM CDT) QFTP NIL 0.00 02/27/2023 9:28 AM [facility] TB1 0.00 IU/mL 02/27/2023 9:28 AM FACILITY EXAMINER [facility] TB2 0.07 IU/mL 02/27/2023 9:28 AM [facility] MITOGEN 9.60 IU/mL 02/27/2023 9:28 AM [facility] QFTP TB AG1 - NIL 0.00 023 9:28 AM [facility] TB1-NIL % OF NIL 02/28/20 9:28 AM [facility] Comment:Unable to calculate QFTP TB AG2 - NIL 0.07 023 9:28 AM FACILITY EXAMINER [facility] TB2-NIL % OF NIL 02/28/20 9:28 AM FACILITY EXAMINER [facility] Comment:Unable to calculate QFTP MITOGEN - NIL 9.60 2022 9:28 AM [facility] QFTP QUANTIFERON INTERPRETATION Negative Negative 02/27/2023 9:28 AM [facility] Blood BLOOD SPECIMEN / Unknown Butterfly / Unknown 02/25/2023 12:20 PM CDT 02/25/2023 12:21 PM CDT [facility] - 02/27/2023 9:28 AM [facility] M. tuberculosis infection not likely, but cannot be excluded in cases of immunosuppression. CAUTION: The performance of QuantiFERON-TB Gold Plus has not been evaluated in specimens from: - Individuals with impaired or altered immune factors (HIV infections, transplant patients, those receieving immunosuppressive drugs such as corticosteroids) and those with other clinical conditions (e.g., diabetes, hematological disorders). - Individuals younger than 17 years old. ??Refer to CDC website for testing recommendations in children 6-17 years old. - women Ruben Cason MD CHEMISTRY [facility] [address] 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 Expl anation Healthcare Directive 12/02/2015 2:07 PM 11/25 Latest Code Status on File Code Status Date Activated Date Inactivated Comments Full Code 09/09/2021 2:40 PM 09/10/2021 4:07 PM Question Answer Comments Code Status Discussion: Reviewed Preferences Code Status History Code Status Date Activated Date Inactivated Comments Full Code 06/09/2021 10:43 AM 06/10/2021 5:12 PM Question Answer Comments Code Status Discussion: Reviewed Preferences Full Code 01/26/2017 6:54 PM 01/27/2017 6:52 PM Full Code 01/26/2017 10:30 AM 01/26/2017 6:54 PM Full Code 10/16/2012 4:15 PM 10/18/2012 1:15 PM Care Teams Cake Wringer Relationship Specialty Start Date End Date Votel, Ruben Hewitt MD [address] [place] [address] PCP - General 01/28/06
--- OUTSIDE RECORDS SUMMARY | 2023-05-09 08:45 | XMS_ITS | Continuity of Care Document ---
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 to avoid NSAIDs while using this medication hydrocodone 10 mg-acetaminophen 325 mg tablet take 0.5 - 1 Tablet by ORAL route every 6 - 8 hours as needed for pain 0.5-1 Tablet - Active cyclobenzaprine 10 mg tablet take 1 by Oral route every 8 hours as needed 1 - Active METOPROLOL SUCCINATE (unknown strength) Not Available - Active METHOCARBAMOL (unknown strength) Not Available - Active TRAMADOL HCL (unknown strength) Not Available - Active ALENDRONATE SODIUM (unknown strength) Not Available - Active VITAMIN D3 (unknown strength) Not Available - Active MELOXICAM (unknown strength) Not Available - Active MULTIVITAMINS (unknown strength) Not Available - Active OMEPRAZOLE (unknown strength) Not Available - Active HYDROCHLOROTHIAZIDE (unknown strength) Not Available - Active QBRELIS (unknown strength) Not Available - Active FLUTICASONE PROPIONATE (unknown strength) Not Available - Active LOPERAMIDE (unknown strength) Not Available - Active ASCORBIC ACID (unknown strength) Not Available - Active AMRIX (unknown strength) Not Available - Active ATORVASTATIN CALCIUM (unknown strength) Not Available - Active SIMETHICONE (unknown strength) Not Available - Active AMOXICILLIN (unknown strength) Not Available - Active ACCU-CHEK LILLI (unknown strength) Not Available - Active AMLODIPINE BESILATE (unknown strength) Not Available - Active DURLAZA (unknown strength) Not Available - Active TRAZODONE HCL (unknown strength) Not Available - Active Procedures Procedure Date Office/Outpatient Visit,Est, Mod 2022 X Ray Exam Entire Spine 2/3 VW Physician Telephone Evaluation 21-30 Min Office/Outpatient Visit,Est, Mod 2021 X-Ray Exam Of Neck Spine2-3 Views Postop Followup Visit X-Ray Exam Of Neck Spine2-3 Views PSF, Cervical (Below C2) - PA PSF - Additional Level(s) - PA Anterior Interbody Fusion, Cervical - PA Anterior Interbody Fusion - Additional L evel - PA Lami, Facetectomy/Foraminotomy, Cervical (Stenosis) Lami, Facetectomy/Foraminotomy - Additio nal Level(s) - PA Posterior Instrumentation, 3-6 Segments - PA Anterior Instrumentation, 2-3 Segments - PA ICBG / Autograft, Morcelized, From Separ ate Incision - PA PSF, Cervical (Below C2) PSF - Additional Level(s) Anterior Interbody Fusion, Cervical Anterior Interbody Fusion - Additional L evel(s) Lami, Facetectomy/Foraminotomy, Cervical (Stenosis) Lami, Facetectomy/Foraminotomy - Additio nal Level(s) Posterior Instrumentation, 3-6 Segments Anterior Instrumentation, 2-3 Segments M ICBG / Autograft, Morcelized, From Separ ate Incision Allograft, Morcelized, and/or BMP Autograft, From Same Incision Stealth / Stereotactic Navigation, Spina l Office/Outpatient Visit,Est, Mod 2020 Office/Outpatient Visit,Est, Mod 2020 Office/Outpatient Visit,Est, Mod 2019 Office/Outpatient Visit,Est, Mod 2019 X Ray Exam Entire Spine 2/3 VW 20 Office/Outpatient Visit,Est, Mod 2017 Office/Outpatient Visit,Est, Mod 2017 X Ray Exam Entire Spine 2/3 VW 18 Office/Outpatient Visit,Est, Mod 2017 X-Ray Exam Of Neck Spine2-3 Views X-Ray Exam Of Neck Spine2-3 Views Postop Followup Visit Pa Neck Spine Fuse & Removal Addl Pa Addl Neck Spine Fusion Pa Assist Insert Spine Fix Dev, Ant, 4-7 Seg PA Assist Insert interbody cage w/fusion Addl Neck Spine Fusion Insert Spine Fix Dev, Ant, 4-7 Seg Insert interbody cage w/fusion 17 Autograft, Spine Surg, Morselized Neck Spine Fuse & Removal Addl 17 Office/Outpatient Visit,Est, Mod 2016 X-Ray Exam Of Neck Spine, 4+ Views Office/Outpatient Visit,Est, Mod 2016 Office/Outpatient Visit,Est, Mod 2013 X-Ray Exam Lower Spine 2-3 Views 2013 Office/Outpatient Visit,Est, Mod 2013 X-Ray Exam Lower Spine 2-3 Views 2013 Office/Outpatient Visit,Est, Mod 2012 X-Ray Exam Of Neck Spine2-3 Views X-Ray Exam Lower Spine 2-3 Views 2012 Postop Followup Visit X-Ray Exam Lower Spine 2-3 Views 2012 Arthdsis Post/Posterolatrl/Postinterbody Lumbar Arthdsis Post/Posterlatrl/Postintrbdyadl Spc/Seg Bilateral Low Back Disk Surgery/Decompre ss Bilateral Added Spine Disk Surgery/Decom press Insert Spine Seg Fix, Post, 3-6 Seg Apply Spinal Prosthetic Device 13 Allograft, Spine Surg, Morselized Autograft, Spine Surgery, Local 013 Apply Spinal Prosthetic Device 13 Assist Arthdsis Post/Posterolatrl/Postin terbody Lumbar Assist Arthdsis Post/Posterlatrl/Postint rbdyadl Spc/Seg Bilateral Assist Low Back Disk Surgery/D ecompress Bilateral Assist Added Spine Disk Surger y/Decompress Assist Insert Spine Seg Fix, Post, 3-6 S eg Assist Apply Spinal Prosthetic Device Assist Apply Spinal Prosthetic Device Office/Outpatient Visit,Est, Mod 2012 Office/Outpatient Visit,Est, Mod 2012 X-Ray Exam Lwr Spine, Min 4 Views Office/Outpatient Visit,Est, Mod 2010 Office/outpatient visit,est, mod 2010 Office/outpatient visit,new, mod 2009 Advance Directives Directive Yes / No Effective Date File Name No Information Encounters Encounter Description Practice Location Reason(s) For Visit Diagnoses Date Provider Providers Copied on Encounter Office/Outpa tient Visit,Est, Mod [facility], [address], [place], [place], [address], [place] tel:[phone] [facility] Gabriela Other spondylosis, thoracic region 3 Larry Marin. [facility], [address], [place], [place], [address], [place]. tel:[phone] Referring Provider: Ruben Cason, [facility] [address] , [place], [address]. tel:[phone] Physician Telephone Evaluation 21-30 Min [facility], [address], [place], [place], [address], [place] tel:[phone] [facility] - James No Information Jan- 2 Alek Roberts. [facility], [address] [place] [address], [place], [place], [address], . tel:[phone] Referring Provider: Ruben Cason [facility] [address], [place], [address]. tel:[phone] Office/Outpa tient Visit,Est, Mod [facility], [address], [place], [place], [address], [place] tel:[phone] [facility] [place] Arthrodesis status Dec-0 2 Alek Roberts. [facility], [address] [place] [address], [place], [place], [address], [place]. tel:[phone] Referring Provider: [facility]ason [facility] [address], [place], [address]. tel:[phone] [facility], [address], [place], [place], [id number], [place] tel:[phone] [facility] [place] No Information Oct-0 2 Larry Marin. [facility], [address] [place] [address], [place], [place], [address], [place]. tel:[phone] [facility], [address], [place], [place], [address], [place] tel:[phone] [facility] [place] Arthrodesis status 2 Larry Marin. [facility], [address] [place] [address], [place], [place], [address], [place]. tel:[phone] Referring Provider: Ruben Cason [facility] [address] , [place], [address]. tel:[phone] [facility], [address], [place], [place], [address], [place] tel:[phone] [facility] [place] No Information 2 Larry Marin. [facility], [address] [place] [address], [place], [place], [address], [place]. tel:[phone] [facility], [address], [place], [place], [address], [place] tel:[phone] [facility] No Information 2 Alek Roberts. [facility], [address] [place] [address], [place], [place], [address], [place]. tel:[phone] Referring Provider: Misty Izquierdo , [place], [address]. tel:[phone] [facility], [address] [facility], [place], [place], [address], [place] tel:[phone] [facility] No Information 2 Larry Marin. [facility], [address] [place] [address], [place], [place], [address], [place]. tel:[phone] Referring Provider: Misty Izquierdo , [place], [address]. 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 [facility], [address] [place] [address], [place], [place], [address], [place]. tel:[phone] Referring Provider: Misty Izquierdo , [place], [address]. tel:[phone] Office/Outpa tient Visit,Est, Mod [facility], [address] [place] [address], [id number], [place] tel:[phone] [facility] No Information 1 Hohertz Armando. [facility], [address] [place] [address], [place], [place], [address], [place]. tel:[phone] Referring Provider: [facility], [place], [address]. 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 [facility], [address] [place] [address], [place], [place], [address], [place]. tel:[phone] Referring Provider: [facility] [address] [facility], [place], [address]. tel:[phone] Office/Outpa tient Visit,Est, Mod [facility], [address], [place], [place], [address], [place] tel:[phone] [facility] [place] Other spondylosis, thoracic region 0 Hohertz Armando. [facility], [address] [place] [address], [place], [place], [address], [place]. tel:[phone] Referring Provider: [facility] [address] [facility], [place], [address]. tel:[phone] Office/Outpa tient Visit,Est, Mod [facility], [address], [place], [place], [address], [place] tel:[phone] [facility] [place] Other spondylosis, thoracic region 4201 8 Larry Marin. [facility], [address] [place] [address], [place], [place], [address], [place]. tel:[phone] Referring Provider: [facility] [address] [facility], [place], [address]. tel:[phone] Office/Outpa tient Visit,Est, Mod [facility], [address], [place], [address], [place] tel:[phone] [facility] [place] Other spondylosis, thoracic regionMuscle spasm of back Larry Marin. [facility], [address] [place] [address], [place], [place], [address], [place]. tel:[phone] Referring Provider: [facility] [address], [place], [address]. tel:[phone] Office/Outpa tient Visit,Est, Mod [facility], [address], [place], [place], [address], [place] tel:[phone] [facility] [place] Arthrodesis status Alek Roberts. [facility], [address] [place] [address], [id number], [place]. tel:[phone] Referring Provider: Ruben Cason [facility] [address], [place], [address]. tel:[phone] [facility], [address], [place], [place], [address], [place] tel:[phone] [facility] [place] Arthrodesis status Larry Marin. [facility], [address] [place] [address], [place], [place], [address], [place]. tel:[phone] Referring Provider: [address], [place], [address]. tel:[phone] [facility], [address], [place], [address], [place] tel:[phone] [facility] No Information Alek Roberts. [facility], [address] [place] [address], [id number], [place]. tel:[phone] Referring Provider: Ruben Cason [facility] [address], [place], [address]. tel:[phone] [facility], [address], [place], [place], [address], [place] tel:[phone] [facility] No Information 7 Larry Marin. [facility], [address], [place], [place], [address], [place]. tel:[phone] Referring Provider: Ruben Cason, [facility] [address], [place], [address]. tel:[phone] Office/Outpa tient Visit,Est, Mod [facility], [address], [place], [place], [address], [place] tel:[phone] [facility] [place] Other spondylosis, cervical regionSpondy lolisthesis, cervical region 0 7 Larry Marin. [facility], [address], [place], [place], [address], [place]. tel:[phone] Referring Provider: Armando Nieves, [facility] [address], [place], [address]. tel:[phone] Office/Outpa tient Visit,Est, Mod [facility], [address], [place], [place], [address], [place] tel:[phone] [facility] [place] Spondylolist hesis, cervical regionOther spondylosis, cervical region Jun-0 2 7 Alek Roberts. [facility], [address], [place], [place], [address], [place]. tel:[phone] Referring Provider: Armando Nieves, [facility] [address], [place], [address]. tel:[phone] Office/Outpa tient Visit,Est, Mod Z [facility], [address] [place], [place] [address], [place], [address], [place] tel:[phone] [facility] [place] No Information 3 4 Larry Marin. [facility], [address], [place], [place], [address], [place]. tel:[phone] Referring Provider: Kash Henao, [facility] [address], [place], [address]. tel:[phone] Z [facility], [address] [facility], [place], [address], [place] tel:[phone] [facility] - [place] ARTHRODESIS STATUSACQ SPONDYLOLIST HESISSpnal Stenosis, Lumbar, With Neurogenic Claudication 4 Larry Marin. [facility], [address] [place] [address] [address], [place], [place], [address], [place]. tel:[phone] Z [facility], [address] [place], [place] [address] [facility], [place], [place], [facility], [place] tel:[phone] [facility] Irritable ColonOSTEOAR THROS NOS-UNSPECSE NSORNEUR LOSS COMB TYPALLERGIC RHINITIS NOSOsteopeni a 0 4 Mehbod Amir. [facility], [address] [place] [address] [address], [place], [place], [address], [place]. tel:[phone] Office/Outpa tient Visit,Est, Mod Z [facility], [address] [place], [place] [address] [facility], [place], [address], [place] tel:[phone] [facility] No Information 4 Larry Marin. [facility], [address] [place] [address] [address], [place], [place], [address], [place]. tel:[phone] Referring Provider: Kash Henao, [facility] [address], [place], [address]. tel:[phone] Office/Outpa tient Visit,Est, Mod Z [facility], [address] [place], [place] [address] [address] [place] [address], [address], [place] tel:[phone] [facility] No Information 0 3 Larry Marin. [facility], [address] [place] [address] [address], [place], [place], [address], [place]. tel:[phone] Referring Provider: Kash Henao, [facility] [address] , [place], [address]. tel:[phone] Z [facility], [address], [place], [address], [place] tel:[phone] [facility] - [facility] No Information 0 3 Larry Marin. [facility], [address], [place], [place], [address], [place]. tel:[phone] Referring Provider: Kash Henao, [facility] [address] , [place], [address]. tel:[phone] Z [facility], [address], [place], [address], [place] tel:[phone] [facility] No Information 3 Larry Marin. [facility], [address], [place], [place], [address], [place]. tel:[phone] Referring Provider: Kash Henao, [facility] [address] [facility], [place], [address]. tel:[phone] Office/Outpa tient Visit,Est, Mod Z [facility], [address], [place], [address], [place] tel:[phone] [facility] No Information 3 Larry Marin. [facility], [address], [place], [place], [address], [place]. tel:[phone] Referring Provider: Kash Henao, [facility] [address] , [place], [address]. tel:[phone] Office/Outpa tient Visit,Est, Mod Z [facility], [address], [place], [address], [place] tel:[phone] [facility] - [facility] GERDHyperten michoacano, Unspecified 3 Janusz Velez. [facility], [address] [facility] , [place], [address], [place]. tel:[phone] Referring Provider: Kash Henao, [facility] [address] [facility], [place], [address]. tel:[phone] Office/Outpa tient Visit,Est, Mod Z [facility], [address], [place], [address], [place] [phone] [facility] No Information 1 Larry Marin. [facility], [address], [place], [place], [address], [place]. tel:[phone] Referring Provider: Kash Henao, [facility] [address] [facility], [place], [address]. tel:[phone] Office/outpa tient visit,est, mod Z [facility], [address], [place], [address], [place] tel:[phone] [facility] No Information 1 Larry Marin. [facility], [address], [place], [place], [address], [place]. tel:[phone] Referring Provider: Kash Henao, [facility] [address] [facility], [place], [address]. tel:[phone] Office/outpa tient visit,new, mod Z [facility], [address], [place], [address], [place] tel:[phone] [facility] No Information 0 Larry Marin. [facility], [address], [place], [place], [address], [place]. tel:[phone] Referring Provider: Kash Henao, [facility] [address] [facility], [place], [address]. tel:[phone] Family History Family Member Type Diagnosis Age At Onset Mother Problem (finding) Mother Problem (finding) Brain aneurysm (Cause O f ) Brother Problem (finding) prostate cancer Father Problem (finding) Renal disease Father Problem (finding) congestive heart failur e Payers Payer name Insurance type Covered democrat ID Rafal tomas(s) [facility] [id number] Medicare Misty BARRAZA [id number] 1 Social History Type Description Quantity Date Captured Comments Alcohol Use Details Unknown Caffeine Use Details Unknown Tobacco Use Status No Information Smoking Status No Information Sex Female Vital Signs Date / Time: Height Weight BMI Pulse Rate Blood Pressure Temperature Respiratory Rate Body Surface Area Head Circumference Head Circ. Percentile Wt./Terrance. Percentile BMI percentile Pulse Ox Inhaled Ox 8:04 AM 63.00 in 73.936 kg (163.00 lbs) 28.8 7 kg/m eter (2) Chief Complaint And Reason For Visit No Information Reason For Referral Reason For Referral No Information Plan Of Treatment Date Type Action Status Appointment Anabella Velasquez BOOKED Future Order: Radiology Order PA /Lateral Full Spine (PALatFS), Ordered on: Ordered Future Order: Radiology Order Ce rvical 4 Or 5 Views ([id number]), Ordered on: Ordered Future Order: Radiology Order AP Lateral Lumbar (APLatLumb), Ordered on: Ordered Future Order: Radiology Order Ayana mbosacral 2 Or 3 Views ([id number]), Ordered on: Ordered History Of Present Illness Encounter Date Complaint History Of Prese nt Illness No Information Functional Status Date Functional Assessmen t No Information Instructions Date Instruction Additional Infor mation Weight management: I nstructed to return to General Practitioner timeframe: 1 Month. Related to Overweight Weight Management Education Rela nevaeh to Overweight Weight management: I nstructed to return to General Practitioner timeframe: 1 Month. Related to Overweight Weight Management Education Rela nevaeh to Overweight Weight management: I nstructed to return to General Practitioner timeframe: 1 Month. Related to Overweight Weight Management Education Rela nevaeh to Overweight Blood Pressure Management Relate d to Unspecified Essential Hypertension Weight management: I nstructed to return to General Practitioner timeframe: 1 Month. Related to Overweight Weight Management Education Rela nevaeh to Overweight Instructed to return to General Practitioner timeframe: 1 Month. Related to Unspecified Essential Hypertension Assessments Type Assessment Date No Information Patient Care Teams Name Effective Dates (start - stop) Status Members No Information
--- OUTSIDE RECORDS SUMMARY | 2023-05-09 08:45 | XMS_ITS | Continuity of Care Document ---
Author Name Unknown Organization [facility] Address [address] [place] [address] Phone Care Team Providers Care Infant Childcare Provider Name Role Phone Tomas Juarez MD Unavailable [...] tient Visit,Est, Mod [facility], [address], [place], [place], [id number], [place] tel:[phone] [facility] - Gabriela Other spondylosis, thoracic region 3 Larry Marin. [facility], [address], [place], [place], [id number], [place]. tel:[phone] Referring Provider: Ruben Cason, [facility] [address] , [place], [address]. tel:[phone] Physician Telephone Evaluation 21-30 Min [facility], [address], [place], [place], [id number], [place] tel:[phone] [facility] - James No Information Jan- 2 Alek Roberts. [facility], [address] [place] [address], [place], [place], [id number], . tel:[phone] Referring Provider: Ruben Cason [facility] [address], [place], [address]. tel:[phone] Office/Outpa tient Visit,Est, Mod [facility], [address], [place], [place], [id number], [place] tel:[phone] [facility] [place] Arthrodesis status Dec-0 2 Alek Roberts. [facility], [address] [place] [address], [place], [place], [id number], [place]. tel:[phone] Referring Provider: Ruben Cason [email or web address] [address], [place], [address]. tel:[phone] [facility], [address], [place], [place], [id number], [place] tel:[phone] [facility] [place] No Information Oct-0 2 Larry Marin. [facility], [address] [place] [address], [place], [place], [id number], [place]. tel:[phone] [facility], [address], [place], [place], [id number], [place] tel:[phone] [facility] [place] Arthrodesis status 2 Larry Marin. [facility], [address] [place] [address], [place], [place], [id number], [place]. tel:[phone] Referring Provider: Ruben Cason [email or web address] [address] , [place], [address]. tel:[phone] [facility], [address], [place], [place], [id number], [place] tel:[phone] [facility] [place] No Information 2 Larry Marin. [facility], [address] [place] [address], [place], [place], [id number], [place]. tel:[phone] [facility], [address], [place], [place], [id number], [place] tel:[phone] [facility] No Information 2 Alek Roberts. [facility], [address] [place] [address], [place], [place], [id number], [place]. tel:[phone] Referring Provider: Misty Izquierdo , [place], [address]. tel:[phone] [facility], [address] [facility], [place], [place], [id number], [place] tel:[phone] [facility] No Information 2 Larry Marin. [facility], [address] [place] [address], [place], [place], [address], [place]. tel:[phone] Referring Provider: Misty Izquierdo , [place], [address]. tel:[phone] Office/Outpa tient Visit,Est, Mod [facility], [address], [place], [place], [id number], [place] [phone] [facility] [place] Pseudarthros is after fusion or arthrodesis 1 Alek Roberts. [facility], [address] [place] [address], [place], [place], [id number], [place]. tel:[phone] Referring Provider: Misty Izquierdo , [place], [address]. tel:[phone] Office/Outpa tient Visit,Est, Mod [facility], [address] [place] [address], [id number], [place] tel:[phone] [facility] No Information 1 Hohertz Armando. [facility], [address] [place] [address], [place], [place], [id number], [place]. tel:[phone] Referring Provider: Tristan [email or web address], [place], [address]. tel:[phone] Office/Outpa tient Visit,Est, Mod [facility], [address], [place], [place], [address], [place] tel:[phone] [facility] [place] Pseudarthros is after fusion or arthrodesis 0 Hohertz Armando. [facility], [address] [place] [address], [place], [place], [id number], [place]. tel:[phone] Referring Provider: Tristan [email or web address] Juan [address] [facility], [place], [address]. tel:[phone] Office/Outpa tient Visit,Est, Mod [facility], [address], [place], [place], [id number], [place] tel:[phone] [facility] [place] Other spondylosis, thoracic region 0 Hohertz Armando. [facility], [address] [place] [address], [place], [place], [id number], [place]. tel:[phone] Referring Provider: Tristan [email or web address] [facility] Juan [address] [facility], [place], [address]. tel:[phone] Office/Outpa tient Visit,Est, Mod [facility], [address], [place], [place], [id number], [place] tel:[phone] [facility] [place] Other spondylosis, thoracic region 4201 8 Larry Marin. [facility], [address] [place] [address], [place], [place], [id number], [place]. tel:[phone] Referring Provider: Tristan [email or web address] [address] [facility], [place], [address]. tel:[phone] Office/Outpa tient Visit,Est, Mod [facility], [address], [place], [id number], [place] tel:[phone] [facility] [place] Other spondylosis, thoracic regionMuscle spasm of back Larry Marin. [facility], [address] [place] [address], [place], [place], [address], [place]. tel:[phone] Referring Provider: [facility] [address], [place], [address]. tel:[phone] Office/Outpa tient Visit,Est, Mod [facility], [address], [place], [place], [address], [place] tel:[phone] [facility] [place] Arthrodesis status Alek Roberts. [facility], [address] [place] [address], [id number], [place]. tel:[phone] Referring Provider: Ruben Cason [email or web address] [address], [place], [address]. tel:[phone] [facility], [address], [place], [place], [id number], [place] tel:[phone] [facility] [place] Arthrodesis status Larry Marin. [facility], [address] [place] [address], [place], [place], [address], [place]. tel:[phone] Referring Provider: [address], [place], [address]. tel:[phone] [facility], [address], [place], [place], [address], [place] tel:[phone] [facility] No Information Alek Roberts. [facility], [address] [place] [address], [id number], [place]. tel:[phone] Referring Provider: Ruben Cason [email or web address] [address], [place], [address]. tel:[phone] [facility], [address], [place], [place], [id number], [place] tel:[phone] [facility] No Information 7 Larry Marin. [facility], [address], [place], [place], [address], [place]. tel:[phone] Referring Provider: Ruben Cason, [facility] [address], [place], [address]. tel:[phone] Office/Outpa tient Visit,Est, Mod [facility], [address], [place], [place], [id number], [place] tel:[phone] [facility] [place] Other spondylosis, cervical regionSpondy lolisthesis, cervical region 0 7 Larry Marin. [facility], [address], [place], [place], [address], [place]. tel:[phone] Referring Provider: Armando Nieves, [facility] [address], [place], [address]. tel:[phone] Office/Outpa tient Visit,Est, Mod [facility], [address], [place], [place], [id number], [place] tel:[phone] [facility] [place] Spondylolist hesis, cervical regionOther spondylosis, cervical region Jun-0 2 7 Alek Roberts. [facility], [address], [place], [place], [id number], [place]. tel:[phone] Referring Provider: Armando Nieves, [facility] [address], [place], [address]. tel:[phone] Office/Outpa tient Visit,Est, Mod Z [facility], [address] [place], [place] [address], [place], [address], [place] tel:[phone] [facility] [place] No Information 3 4 Larry Marin. [facility], [address], [place], [place], [id number], [place]. tel:[phone] Referring Provider: Kash Henao, [facility] [address], [place], [address]. tel:[phone] Z [facility], [address] [facility], [place], [address], [place] tel:[phone] [facility] - [place] ARTHRODESIS STATUSACQ SPONDYLOLIST HESISSpnal Stenosis, Lumbar, With Neurogenic Claudication 4 Larry Marin. [facility], [address] [place] [address] [address], [place], [place], [address], [place]. tel:[phone] Z [facility], [address] [place], [place] [address] [facility], [place], [place], [facility], [place] tel:[phone] [facility] Irritable ColonOSTEOAR THROS NOS-UNSPECSE NSORNEUR LOSS COMB TYPALLERGIC RHINITIS NOSOsteopeni a 0 4 Mehbod Amir. [facility], [address] [place] [address] [address], [place], [place], [id number], [place]. tel:[phone] Office/Outpa tient Visit,Est, Mod Z [facility], [address] [place], [place] [address] [facility], [place], [address], [place] tel:[phone] [facility] No Information 4 Larry Marin. [facility], [address] [place] [address] [address], [place], [place], [address], [place]. tel:[phone] Referring Provider: Kash Henao, [facility] [address], [place], [address]. tel:[phone] Office/Outpa tient Visit,Est, Mod Z [facility], [address] [place], [place] [address] [place] [address], [address], [place] tel:[phone] [facility] No Information 0 3 Larry Marin. [facility], [address] [place] [address] [address], [place], [place], [address], [place]. tel:[phone] Referring Provider: Kash Henao, [facility] [address] , [place], [address]. tel:[phone] Z [facility], [address], [place], [address], [place] tel:[phone] [facility] No Information 0 3 Larry Marin. [facility], [address], [place], [place], [address], [place]. tel:[phone] Referring Provider: Kash Henao, [facility] [address] , [place], [address]. tel:[phone] Z [facility], [address], [place], [address], [place] tel:[phone] [facility] No Information 3 Larry Marin. [facility], [address], [place], [place], [address], [place]. tel:[phone] Referring Provider: Kash Henao, [facility] [address] [facility], [place], [address]. tel:[phone] Office/Outpa tient Visit,Est, Mod Z [facility], [address], [place], [address], [place] tel:[phone] [facility] No Information 3 Larry Marin. [facility], [address], [place], [place], [address], [place]. tel:[phone] Referring Provider: Kash Henao, [facility] [address] , [place], [address]. tel:[phone] Office/Outpa tient Visit,Est, Mod Z [facility], [address], [place], [address], [place] tel:[phone] [facility] - [facility] GERDHyperten michoacano, Unspecified 3 Janusz Velez. [facility], [address] [facility] , [place], [address], [place]. tel:[phone] Referring Provider: Kash Henao, [facility] [address] [facility], [place], [address]. tel:[phone] Office/Outpa tient Visit,Est, Mod Z [facility], [address], [place], [address], [place] [phone] [facility] No Information 1 Larry Marin. [facility], [address], [place], [place], [address], [place]. tel:[phone] Referring Provider: Kash Henao, [facility] [address] [facility], [place], [address]. tel:[phone] Office/outpa tient visit,est, mod Z [facility], [address], [place], [address], [place] tel:[phone] [facility] No Information 1 Larry Marin. [facility], [address], [place], [place], [address], [place]. tel:[phone] Referring Provider: Kash Henao, [facility] [address] [facility], [place], [address]. tel:[phone] Office/outpa tient visit,new, mod Z [facility], [address], [place], [address], [place] tel:[phone] [facility] No Information 0 Larry Marin. [facility], [address], [place], [place], [address], [place]. tel:[phone] Referring Provider: Kash Henao, [facility] [address] [facility], [place], [address]. tel:[phone] Family History Family Member Type Diagnosis Age At Onset Mother Problem (finding) Mother Problem (finding) Brain aneurysm (Cause O f ) Brother Problem (finding) prostate cancer Father Problem (finding) Renal disease Father Problem (finding) congestive heart failur e Payers Payer name Insurance type Covered green party ID Rafal tomas(s) [facility] [address] Medicare Misty BARRAZA [id number] 1 Social History Type Description Quantity Date [...] Order Ayana mbosacral 2 Or 3 Views ([id number]), Ordered on: Ordered History Of Present Illness Encounter Date Complaint History Of Prese nt Illness No Information Functional Status Date Functional Assessmen t No Information Instructions Date Instruction Additional Infor mation Weight Management Education Rela nevaeh to Overweight [...] Practitioner timeframe: 1 Month. Related to Overweight Instructed to return to General Practitioner timeframe: 1 Month. Related to Unspecified Essential Hypertension Weight Management Education Rela nevaeh to Overweight Weight management: I nstructed to return to General Practitioner timeframe: 1 Month. Related to Overweight Blood Pressure Management Relate d to Unspecified Essential Hypertension Assessments Type Assessment Date No Information Patient Care Teams Name Effective Dates (start - stop) Status Members No Information
[2023-05-09] MEDS: LACTATED RINGERS 1000 ML 1,000 ML 100 ML IV ×2 (09:45→12:20)
[2023-05-09] MEDS: SODIUM CHLORIDE 0.9 % (FLUSH) 10 ML SYRINGE IVF (09:45)
[2023-05-09] MEDS: BUPIVACAINE 0.5% 30 ML INJECTION (10:55)
[2023-05-09] MEDS: CEFAZOLIN 2 GM INJ IVP (11:03)
--- NOTE | 2023-05-09 11:13 | CRLHL7_ITS ---
For Patients: As a result of the Cures Act, medical imaging exams and procedure reports are released immediately into your electronic medical record. You may view this report before your referring provider. If you have questions, please contact your health care provider. INDICATION: First MTP fusion TECHNIQUE: First MTP fusion performed by Dr. Manjarrez. Two C-arm spot images were obtained. Fluoroscopy time was 7.4 seconds. COMPARISON: None. FINDINGS: C-arm fluoroscopy for 1st MTP fusion as well as 2nd and 3rd toe K-wire fixation. IMPRESSION: C-arm fluoroscopy for 1st MTP fusion as well as 2nd and 3rd toe K-wire fixation. Dictated by Dameon Moseley MD @ 05/10/2023 10:09:14 AM (Electronically Signed)
--- NOTE | 2023-05-09 13:22 | P.ANES_ITS ---
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
--- NOTE | 2023-05-09 14:29 | PM.GSPRC ---
Operative Note Date of procedure: 05/09/23 Pre-op diagnosis: 1. Hallux valgus with bunion left 2. Hammertoe 2nd digit left 3. Hammertoe 3rd digit left 4. Dislocation 3rd MPJ left Post-op diagnosis: 1. Hallux valgus with bunion left 2. Hammertoe 2nd digit left 3. Hammertoe 3rd digit left 4. Dislocation 3rd MPJ left Type of Procedure: 1. First MPJ fusion left 2. Joanna osteotomy 2nd metatarsal left 3. Partial metatarsal head resection 3rd left 4. Hammertoe repair 2nd digit left 5. Hammertoe repair 3rd digit left Indications: Patient was seen in clinic for ongoing painful left foot. She does not have surgical correction. Reviewed the procedure, recovery, expectation potential complications. These include but are not limited to: Wound Healing, infection, under correction, over correction, nonunion, delayed union, and malunion, hardware irritation, nerve injury, potentially future surgery, deep venous thrombosis, pulmonary embolism possible . All questions answered consents obtained. Procedure Description: After discussing the risks and benefits of the procedure, the patient signed informed consent.? The operative site was marked and the patient was brought to the operating room and placed on the operating table in supine position.? Care was taken to pad the patient's pressure points.?? The patient was then placed under MAC by anesthesia.?? 30 mL of 0.5% Marcaine plain injected into the left foot. The operative site was then prepped and draped in the usual sterile fashion.? A time-out was then performed. Linear incision is made over the 1st metatarsophalangeal joint. Incision was carried down through skin subcutaneous tissues. Linear capsular periosteal incision was made. A pin was placed in the 1st metatarsal head is in the 18 mm Reamer was used to remove the cartilage and subchondral bone. Guidepin was removed and placed in the base of the proximal phalanx and the corresponding 18 mm reamers used to remove the cartilage and subchondral bone.. Irrigated normal sterile saline. Post fusion surfaces fenestrated with K-wire. Hallux is in place the optimal position and temporarily fixated with a K-wire. C-arm confirmed position. Gave him placed from the distal medial to proximal lateral across the fusion site and a 3.0 mm headless screw strain inserted. Excellent compression across the fusion site. Given the 6 hole 1st MPJ fusion plate applied dorsally with 3.0 mm locking screws x3 placed distal and 2 placed proximal. Additional nonlocking screw placed proximal. Medial fusion site remodeled with a rotary bur. Wound irrigated normal sterile saline. Capsular tissue repaired with 3-0 Vicryl. Subcutaneous tissues reapproximated 4-0 Monocryl and skin closed with 4-0 Prolene. Linear incision is made over the 2nd metatarsophalangeal joint extending over the PIPJ distally. Incision taken down through skin subcutaneous tissues. Extensor tendons were transected and a linear incision made through the metatarsophalangeal joint. Dorsal cartilage was intact and the 2nd proximal phalangeal base had not dorsally dislocated. A Joanna osteotomy was performed using a double cut technique removing a small 1 mm wedge and the capital fragment then transposed proximal and fixated with a 2.0 mm twist off screw x1. Dorsal overhanging bone removed with a rongeur. At the level of the PIPJ transverse incision made through the extensor tendon. Medial and lateral collateral ligaments released. Oscillating saw used to remove the head of the proximal phalanx the base of the middle phalanx. 0.054 K-wire introduced to the base of the middle phalanx driven out the tip of the toe. The fusion site held tight and the K-wire drilled retrograde the into the proximal phalanx. C-arm confirmed length. K-wire was bent cut and capped. Redundant extensor tendon excised and the extensor tendon repaired at the PIPJ with 4-0 Vicryl. Subcutaneous tissues reapproximated 4-0 Monocryl and skin closed 4-0 Prolene. Linear incision made over the 3rd metatarsophalangeal joint. Incision carried down the skin subcutaneous tissues. Extensor tendon and dorsal joint capsule transected. Third proximal phalanx completely dislocated dorsally. McGlamry elevator placed within the joint and the plantar adhesions released. Sagittal saw was used to perform a partial metatarsal head resection. This allowed decompression in the 3rd toe dropped into a more anatomic position. Plantar 3rd metatarsal head filed with a rasp. Wound irrigated with normal sterile saline. The 4th toe extensor tendon was quite tight and causing dorsal extension of the 4th toe. Blunt dissection carried through the incision to the tendon which was transected. Subcutaneous tissues reapproximated 4-0 Monocryl skin closed with 4-0 Prolene. Transverse incision at the PIPJ 3rd toe. Incision through the joint capsule with a medial lateral collateral ligaments released. The oscillating saw used to resect the head of the proximal phalanx and base of middle phalanx. 0.054 smooth K-wire was introduced at the base of the proximal phalanx driven out the tip of the toe. The fusion site held tight and the QA retrogradely drilled into the proximal phalanx. C-arm confirmed position. K-wire bent cut and capped. Redundant extensor tendon excised and repaired with 4-0 Vicryl. Skin repaired with 4-0 Prolene. Small stab incision made over the 5th extensor tendon just proximal to the metatarsal head. Percutaneous tenotomy of the extensor tendon performed. Skin closed with 4-0 Prolene. Sterile dressings were then applied. Tourniquet was released normal capillary fill time returned to all digits. She was placed in well-padded short cam boot. The patient was then woken and transported to the recovery area in stable condition. The patient tolerated the procedure well. She was discharged per same-day protocol. She was will be weight-bearing to the heel with crutches in a cam boot. She is given oxycodone for pain. To start aspirin therapy tomorrow. Follow-up this week. Findings: Complications: None apparent Implants: Arthrex 1st MPJ fusion plate x1, 3.0mm locking screw x5, level 3.0 mm nonlocking screw x1, 3.0 mm cannulated screw x1, 0.054 smooth K-wires x2. Anesthesia: MAC and local Surgeon: Kodak Manjarrez DPM Estimated blood loss (mL): 5 Condition: stable Disposition: same day
--- NOTE | 2023-05-09 14:40 | REH.PT ---
Pt is heel wt bearing on L LE in CAM boot post hammer toe sx. She has a 2ww, 4ww and SEC for home use. Instructed pt in gt level surfaces with 2ww, basic transfers and verbally instructed in stairs sequence and car transfers. Pt and spouse demo understanding of all teaching. No Charge.
== END 2023-05-09 15:00 | disposition home or self-care (01) ==
PROVIDERS: PCP Family Medicine; Visit Provider Podiatrist
PROC: (CPT 28740; principal; 2023-05-09 10:30)
PROC: (CPT 28285; 2023-05-09 10:30)
DX: M20.12 Hallux valgus (acquired), left foot (principal); M21.612 Bunion of left foot; M20.42 Other hammer toe(s) (acquired), left foot; S93.125A Dislocation of metatarsophalangeal joint of left lesser toe(s), initial encounter; M25.872 Other specified joint disorders, left ankle and foot
CPT/HCPCS: 28750; 28285 ×2; 28122; 01480; 73620; 76000; 82962; 99100; A4580; C1713; J0665; J0690; J1100; J2250; J2405; J2704; J3010; J7120

== ENCOUNTER 2023-07-29 09:43 | Day surgery (SDC) | payer MEDICARE, BC, SELFPAY ==
[2023-07-29 10:11] VITALS: BP 147/70; PULSE 70; RESP 16; TEMP 36.3; O2SAT 98; BMI 28.3
[2023-07-29] MEDS: LACTATED RINGERS 1000 ML 1,000 ML 100 ML IV ×2 (10:15→13:02)
[2023-07-29] MEDS: SODIUM CHLORIDE 0.9 % (FLUSH) 10 ML SYRINGE IVF (10:15)
[2023-07-29] MEDS: CEFAZOLIN 2 GM INJ IVP (12:10)
[2023-07-29] MEDS: BUPIVACAINE 0.5% 30 ML INJECTION (12:15)
--- NOTE | 2023-07-29 12:20 | XR_ITS ---
Patient: JAMAR BRANDON Facility:?[facility] Patient ID:?[id number] Site Patient ID:?[id number]. Site :?[id number] Study:?XRay-Extremity Right FOOT INTRA OP-07/29/2023 1:49:09 PM Ordering Physician:?JR Final Report: Indication: RT 2ND TOE Hammertoe REPAIR, RT 1ST MPJ FUSION Technique: Two fluoroscopic images of the right foot. Fluoroscopic time 6.7 seconds. IMPRESSION: Fluoroscopic guidance for 1st MTP fusion and 2nd hammertoe correction. Dictated by Juan Carlos Olsen MD @ 07/31/2023 2:52:07 PM Signed by:?Juan Carlos Olsen MD @07/31/2023 2:52:07 PM (Electronic Signature)
[2023-07-29 14:20] VITALS: BP 104/55; PULSE 71; RESP 16; TEMP 36.5; O2SAT 93
--- NOTE | 2023-07-29 14:23 | P.ANES_ITS ---
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
[2023-07-29 14:30] VITALS: BP 117/65; PULSE 66; RESP 16; O2SAT 92
--- NOTE | 2023-07-29 14:40 | SUR.PHASEII ---
Pt tolerated water and pudding in Phase II.
[2023-07-29 14:47] VITALS: BP 124/69; PULSE 65; RESP 16; O2SAT 92
--- NOTE | 2023-07-29 14:59 | W.PODPROC_ITS ---
Date of Procedure: 07/29/23 Surgeon: Kodak Manjarrez DPM Pre-op Diagnosis: 1. Hallux valgus with bunion right 2. Metatarsalgia right 3. Hammertoe 2nd digit right 4. Hammertoe 3rd digit right 5. Hammertoe 4th digit right Post-op Diagnosis: 1. Hallux valgus with bunion right 2. Metatarsalgia right 3. Hammertoe 2nd digit right 4. Hammertoe 3rd digit right 5. Hammertoe 4th digit right Type of Procedure: 1. First MPJ fusion right 2. Joanna osteotomy 2nd metatarsal right 3. Hammertoe repair 2nd digit right 4. Extensor tenotomy 3rd digit right 5. Extensor tenotomy 4th digit right Indications: Patient has had ongoing pain in the right foot and has elected to have surgical intervention. I reviewed the procedure, recovery, expectation potential complications. These include but not limited to: Poor wound healing, infection, under correction, over correction, nonunion, delayed union, hardware irritation, nerve injury, complex regional pain syndrome, potentially future surgery, deep venous thrombosis, pulmonary embolism and possible . She understands risks written consent was obtained. Site marked. Procedure Description: Patient brought the operating room placed supine position on operating table. IV sedation was initiated local anesthetic injected into the right foot. She was prepped and draped in normal aseptic manner. Standard time-out protocol followed. Right foot was exsanguinated the tourniquet inflated to 250 mm Hg. Linear incision was made over the 1st metatarsophalangeal joint. The incision was carried down through skin subcutaneous tissues. A linear capsular incision was made the joint capsule reflected away from the head of the 1st metatarsal and base of proximal phalanx. Significant amount of cautery tophi was noted to the dorsal lateral and plantar medial aspects of the joint. Has much tophi was excised as possible. Guide pin was placed in the 1st metatarsal head an 18 mm Reamer was used to remove the cartilage and subchondral bone. Guide pin was removed and placed in the base of the proximal phalanx. Corresponding 18 mm Reamer was used to remove the cartilage and subchondral bone. Wound was thoroughly irrigated with sterile saline. Opposing fusion surfaces were fenestrated with K-wire. Simulated weight-bearing was performed with a instrument lid and the hallux placed in the optimal position. K-wire was placed across the fusion site temporarily fixating it. C-arm confirmed excellent position. Guide pin was placed from distal medial to proximal lateral across the fusion site and a 3.0 mm partially-threaded headless screw inserted. Excellent compression noted across the fusion site. Dorsal 1st MPJ fusion plate was applied. Three 3.0 mm locking screws placed distally and 1 placed proximally. An additional nonlocking 3.0 mm screw placed proximal. Fusion site was remodeled with a rotary bur and the wound irrigated with normal sterile saline. C-arm confirmed excellent position. Joint capsule was repaired with 3- 0 Vicryl. Subcutaneous tissues repaired with 4-0 Monocryl and skin closed with 4-0 Prolene. Linear incision was made over the 2nd MPJ right foot. Incision was carried down through the skin subcutaneous tissues. Z lengthening was performed on the extensor digitorum longus tendon and the extensor digitorum brevis tendon released. Transverse incision was made through the joint capsule with medial and lateral aspects of the capsule also being released. Linear incision made over the dorsal aspect the 2nd metatarsal. Joanna osteotomy was then performed with the capital fragment transposed proximal 3 mm. It was then fixated with a 3.0 mm twist off screw. Dorsal overhang was removed with rongeur. Wound was thoroughly irrigated normal sterile saline. Subcutaneous tissues reapproximated 4-0 Monocryl and skin closed with 4-0 Prolene. Transverse semielliptical incision was made over the PIPJ 2nd digit. Skin wedge removed. Transverse incision through the extensor tendon and joint capsule made. The mediolateral collateral ligaments released. An oscillating saw was used to resect the head of the proximal phalanx and the base of the middle phalanx. 0.045 smooth K-wire was introduced into the base of the middle phalanx driven out the tip of the toe. Fusion surfaces were held tightly together and the pin drilled retrogradely back into the proximal phalanx. C-arm confirmed position. Wound irrigated with normal sterile saline. Excess extensor tendon excised and the extensor tendon repaired with 4-0 Vicryl. Skin closed with 4-0 Prolene. At this point the 3rd and 4th toes showed extreme extension at the MPJ with contracture of the extensor tendons to both toes. In light of this a small stab incision was made over the 3rd digit extensor tendon proximal to the MPJ. The extensor digitorum longus tendon was isolated with a hemostat and transected. This helped immensely but the extensor brevis tendon also needed release this was also performed. Once complete the toe dropped and no more rectus position. A small stab incision was made over the 4th digit extensor tendon proximal to the MPJ. The extensor digitorum longus tendon was isolated with a hemostat and transected. This helped immensely but the extensor brevis tendon also needed release this was also performed. Once complete the toe dropped and no more rectus position. Incisions closed with 4-0 Prolene. Sterile dressing was then applied. Tourniquet was released and normal capillary fill time returned all digits. She was placed in a well-padded cam boot. She was transferred from OR to PACU vital signs stable and vascular status intact to the right foot. She was discharged per Anesthesia. She was given both written and verbal postop instructions. She is given oxycodone for pain. She is nonweightbearing with crutch assistance. She will follow up in clinic next week. Complications: None apparent. Anesthesia: MAC and local Hemostasis: ankle Estimated blood loss (mL): 5 Implants: [employer] 1st MPJ fusion plate x1, 3.0 mm locking screws x4, 3.0 mm nonlocking screw x1, 3.0 mm cannulated headless screw x1, 3.0 mm twist off screw x1, 0.045 smooth K-wire x1 Specimens: none sent Disposition: same day
[2023-07-29 15:00] VITALS: BP 131/77; PULSE 67; RESP 16; O2SAT 96
--- NOTE | 2023-07-29 15:28 | SUR.PHASEII ---
Patient and verbalized readiness to be discharged and understanding of discharge instructions, including using a walker with no weight bearing.
== END 2023-07-29 15:26 | disposition home or self-care (01) ==
LOC: OR 09:45
PROVIDERS: PCP Family Medicine; Visit Provider Podiatrist
PROC: (CPT 28285; principal; 2023-07-29 11:15)
DX: M20.11 Hallux valgus (acquired), right foot (principal); M21.611 Bunion of right foot; M20.41 Other hammer toe(s) (acquired), right foot; M77.41 Metatarsalgia, right foot; I10 Essential (primary) hypertension; E11.9 Type 2 diabetes mellitus without complications
CPT/HCPCS: 28750; 28308; 28285; 28234 ×2; 01462; 73620; 76000; 82962; 99100; A4580; C1713; J0665; J0690; J1100; J1630; J2371; J2405; J2704; J3010; J7120

== ENCOUNTER 2024-12-18 09:00 | Outpatient (RCR) | payer MEDICARE, BC, SELFPAY | END 2024-12-18 12:26 | disposition home or self-care (01) | PROVIDERS: PCP Family Medicine; Visit Provider Orthopaedic Surgery Hand Surgery | DX: Z48.89 Encounter for other specified surgical aftercare (principal); Z51.89 Encounter for other specified aftercare | CPT/HCPCS: 97110; 97140; 97165; 97168; 97535; L3933; X5282 ==